=== PATIENT | male | born 1970 | race Caucasian/White ===

== ENCOUNTER → 2017-01-10 | Outpatient (CLI) | payer OTHER ==
[~2017-01-10] MED LIST: /ESCI20TA; EFFE37.527; PREVACID30 PO; TESSALO100 PO; TRAZ150T; VICODIN PO
--- NOTE | 2017-01-18 00:14 | ECWPNPC ---
PATIENT NAME: DANO TORRES : 1970 GENDER: MALE VISIT DATE: 01/10/2017 DISCHARGE DATE: 01/10/17 1553 VISIT LOCKED DATE TIME: PHYSICIAN: TO SAM RESOURCE: TO SAM REASON FOR APPOINTMENT 1. BACK PAIN HISTORY OF PRESENT ILLNESS FALL RISK SCREENING: SCREENING :NO FALLS IN THE PAST YEAR 46 YEAR OLD MALE PATIENT WITH HISTORY OF CHRONIC BACK PAIN. PATIENT DESCRIBES THE PAIN STABBING, TENDER, AND THROBBING WITH A PAIN SCORE OF 8/10. MR. 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 PATIENT HAS NOT DONE PHYSICAL THERAPY BECAUSE HE WOULD PREFER TO WORK TO SUPPORT HIS FAMILY. PATIENT IS CURRENTLY USING GABAPENTIN AND TIZANIDINE TO AID IN PAIN RELIEF. MR. TORRES STATES THAT WALKING AND ANY TYPE OF LIFTING OR BENDING INCREASES THE PAIN IN HIS LOWER BACK. PATIENT DENIES UNEXPLAINABLE WEIGHT LOSS, FEVER, CHILLS, NEW CHANGES ON HIS URINARY OR BOWEL CONTROL. PAIN SCREENING: PATIENT HAS A COMPLAINT OF ACUTE OR CHRONIC PAIN YES CURRENT MEDICATIONS TAKING LISINOPRIL 20 MG TABLET ORALLY DAILY TAKING CLARITIN 10 MG TABLET 1 TABLET ORALLY ONCE A DAY TAKING VICODIN 5-300 MG TABLET 1 TABLET NEEDED ORALLY EVERY 6 HRS TAKING REQUIP 3 MG TABLET ORALLY BID TAKING PROZAC 20 MG CAPSULE 1 CAP ORALLY BEFORE BEDTIME TAKING IRON 325 (65 FE) MG TABLET 1 TABLET ORALLY THREE TIMES DAILY TAKING GABAPENTIN 800 MG TABLET 1 TABLET ORALLY THREE TIMES A DAY TAKING TIZANIDINE HCL 4 MG CAPSULE 1 CAPSULE NEEDED ORALLY THREE TIMES A DAY MEDICATION LIST REVIEWED AND RECONCILED WITH THE PATIENT PAST MEDICAL HISTORY HYPERTENSION HIGH CHOLESTEROL DEPRESSION NECK PAIN BACK PAIN ALLERGIES N.K.D.A. SURGICAL HISTORY LEFT ANKLE RIGHT AND LEFT KNEE BACK GASTRIC BYPASS FAMILY HISTORY FATHER: 78 YRS, DIAGNOSED WITH HEART DISEASE MOTHER: ALIVE 71 YRS, DIAGNOSED WITH HEART DISEASE, OTHER SIBLINGS: ALIVE, DIAGNOSED WITH OTHER MOTHER--KIDNEY , RHUMATOID ARTHRITISSISTER--MS. SOCIAL HISTORY GENERAL: TOBACCO USE ARE YOU A:FORMER SMOKER VAPORYES CURRENTLY ALCOHOL SCREENING DID YOU HAVE A DRINK CONTAINING ALCOHOL IN THE PAST YEAR?YES HOW OFTEN DID YOU HAVE A DRINK CONTAINING ALCOHOL IN THE PAST YEAR?MONTHLY OR LESS (1 POINT) HOW MANY DRINKS DID YOU HAVE ON A TYPICAL DAY WHEN YOU WERE DRINKING IN THE PAST YEAR?1 OR 2 (0 POINTS) HOW OFTEN DID YOU HAVE SIX OR MORE DRINKS ON ONE OCCASION IN THE PAST YEAR?NEVER (0 POINTS) POINTS1 INTERPRETATIONNEGATIVE RECREATIONAL DRUG USE DRUG USE?NO CAFFEINE CAFFEINE USE?YES HOW OFTEN AND HOW MUCH? 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 DIET: REGULAR. EXERCISE: PLAYS BASKET BALL DAILY DURING THE SUMMER PLAYS SOFTBALL 2 X WEEK DURING THE SUMMER GOLFS DURING THE SUMMER. MARITAL STATUS: . OTHERS AT HOME: SPOUSE, 5 ADOPTED CHILDREN. PETS: 1 DOG. ISLAM: NO DRUZE BELIEFS THAT WOULD IMPACT HEALTH CARE. LANGUAGE: CROATIAN. EDUCATION: GRADUATED HIGH SCHOOL PLAN OF CARE FOR THE PAIN CLINIC REVIEWED WITH PATIENT AND HE VERBALIZED UNDERSTANDING. LEARNING BARRIERS / SPECIAL NEEDS BARRIERS TO LEARNING?YES COMMENTS DIFFICULTY READING HEARING IMPAIRED?NO VISION IMPAIRED?YES :CORRECTIVE LENSES COGNITIVELY IMPAIRED?YES :LEARNING DISABILITY HAS DIFFICULTY READING READINESS TO LEARN?YES LEARNING PREFERENCES?YES :DEMONSTRATION/VERBAL INSTRUCTION PAIN CLINIC PFS, CLERGY, PUBLIC HEALTH REFERRALS PFS REFERRAL NEEDED?NO CLERGY REFERRAL NEEDED?NO PUBLIC HEALTH REFERRAL NEEDED?NO ADVANCED DIRECTIVES HEALTH CARE PROXY?YES NAME OF HCP -[facility] CONTACT # FOR HCP [phone] IF YES, DO YOU HAVE A COPY WITH YOU?NO SHOULD HAVE ON FILE FOR THE HOSPITAL DO YOU HAVE A DNR?NO POWER OF FILTER TANK TENDER HELPER?NO DOMESTIC VIOLENCE: NONE. HOSPITALIZATION/MAJOR DIAGNOSTIC PROCEDURE SURGURIES REVIEW OF SYSTEMS CONSTITUTIONAL: ANY CHANGE IN YOUR MEDICAL CONDITION? NO . CHILLS NO . FEVER NO . INFECTION: DO YOU HAVE NEW INFECTIONS? NO . DO YOU HAVE HISTORY OF MRSA? NO . MUSCULOSKELETAL: ANY NEW PATTERNS OF PAIN OR NUMBNESS? NO . SYTEMIC LUPUS NO . GASTROENTEROLOGY: ANY NEW CHANGE IN BOWEL CONTROL? NO . BARRETTS ESOPHAGUS NO . CIRRHOSIS NO . HEPATITIS NO . LIVER FAILURE NO . ACID REFLUX YES, PRIOR TO GASTRIC BYPASS--NONE SINCE . UNEXPLAINED WEIGHT LOSS NO . GENITOURINARY: ANY NEW CHANGE IN BLADDER CONTROL? NO . IS THERE A CHANCE YOU COULD BE ? NO . HEMATOLOGY/LYMPH: DO YOU TAKE ANY BLOOD THINNERS? (FOR EXAMPLE- COUMADIN, PLAVIX, AGGRENOX, PLATEL, PRADAXA, OR XARELTO) NO . WHEN WAS YOUR LAST DOSE? DATE: TIME: . LOW PLATELET COUNT NO . SICKLE CELL DISEASE NO . VON WILLIEBRANDS NO . FACTOR V LEIDEN NO . THALLASEMIA NO . ANEMIA NO . EASY BRUISING NO . NEUROLOGY: HAVE YOU FALLEN IN THE PAST 6 MONTHS? NO . ANY NEW EXTREMITY NUMBNESS OR WEAKNESS? NO . HEAD INJURY NO . DEMENTIA NO . CEREBRAL PALSY NO . MULTIPLE SCLEROSIS NO . DIZZINESS NO . HEADACHE NO . STROKES NO . VERTIGO NO . CARDIOLOGY: DO YOU HAVE A PACEMAKER OR DEFIBRILLATOR? NO . ANGINA NO . HEART ATTACK NO . HEART SURGERY NO . CONGESTIVE HEART FAILURE/FLUID OVERLOAD NO . CHEST PAIN NO . HIGH BLOOD PRESSURE NO . IRREGULAR HEART BEAT NO . RESPIRATORY: HAVE YOU BEEN SICK IN THE PAST WEEK? NO . FEVER NO . FLU LIKE SYMPTOMS? NO . CPAP NO . BYPAP NO . ASTHMA NO . EMPHYSEMA NO . CHRONIC LUNG DISEASES NO . SHORTNESS OF BREATH ON EXERTION NO . COUGH NO . SNORING YES . INTEGUMENTARY: DO YOU HAVE ANY RASHES OR OPEN SORES? NO . ALLERGIC/IMMUNO: ARE YOU ALLERGIC TO SHELLFISH OR IV DYE? NO . ANY NEW ALLERGIES? NO . PSYCHIATRIC: DO YOU HAVE THOUGHTS OF HURTING YOURSELF OR SOMEONE ELSE? NO . ARE YOU ABUSED, NEGLECTED, OR IN AN UNSAFE ENVIRONMENT? NO . ENDOCRINOLOGY: ARE YOU DIABETIC? NO . THYROID DISORDER NO . OTHER: DO YOU NEED ANY PRESCRIPTIONS? NO . IF YES, PLEASE LIST: ____ . ANY NEW PROBLEMS WITH YOUR MEDICATIONS? NO . WHEN DID YOU LAST EAT? ____ . WHEN DID YOU LAST DRINK? ____ . WHAT DID YOU LAST DRINK? ____ . NAME OF PERSON DRIVING YOU HOME? ____ . DO YOU HAVE ANY OTHER QUESTIONS OR CONCERNS WOULD LIKE PAIN RELIEF . REVIEWED BY: PROVIDER: TO SAM MD . VITAL SIGNS WT 233.0 LBS, HT 71", BMI 32.49 INDEX, BP 125/77 MM HG, HR 90 /MIN, RR 16 /MIN, TEMP 97.7 F, OXYGEN SAT % 99%, NA INITIALS SC 14:22, REVIEWED BY: AR. EXAMINATION : PATIENT IS ALERT O X 3 AND COOPERATIVE. TENDERNESS IN THE LOWER BACK AND PARASPINAL MUSCLE GROUP. BANDS OF TISSUE, RESTRICTION OF MOVEMENT, AND PRENSENCE OF TRIGGER POINTS IN THE LOWER BACK AREA, ESPECIALLY THE LEFT SIDE. PENDING LUMBAR MRI. ASSESSMENTS MYALGIA - M79.1 (PRIMARY) TREATMENT MYALGIA NOTES: WE DISCUSSED SEVERAL ISSUES WITH MR. TORRES'S PAIN MANAGEMENT CASE. AT THIS TIME THE PATIENT WILL CONTINUE WITH THE SAME MEDICATION REGIME. PATIENT IS AWARE THAT IF HE WOULD LIKE ME TO START PRESCRIBING THAT I WOULD NEED TO SPEAK WITH EDUARDO MOSELEY DIRECTLY ABOUT MEDICATIONS. DUE TO THE SPASTICITY IN THE LOWER BACK I BELIEVE THE PATIENT WOULD BENENFITS FROM TRIGGER POINT INJECTIONS. WE DISCUSSED THE RISKS, BENEFITS, AND ALTNERATIVES OF THE INJECTION AND THE PATIENT WOULD LIKE TO PROCEED AT THIS TIME. ONCE I HAVE VIEWED THE PATIENT'S MRI WE WILL DISCUSS FURTHER INTERVENTIONS IF THE PATIENT DOES NOT RECEIVE ADEQUATE RELIEF FROM THE TRIGGER POINT INJECTIONS. INSTRUCTIONS WERE GIVEN, QUESTIONS WERE ANSWERED, PATIENT REPORTS UNDERSTANDING AND AGREES WITH THE PLAN. I, ANKUSH HOWELL, DOCUMENTED THE ABOVE INFORMATION ACTING A SCRIBE FOR DR. SAM. I HAVE REVIEWED THE ABOVE DOCUMENT, WRITTEN BY ANKUSH SANDOVAL AND I VERIFY THAT IT IS ACCURATE. DEAR DR. CARRANZA:THANK YOU FOR YOUR KIND REFERRAL OF MR. TORRES. YOU WANT TO DISCUSS HER CASE WITH ME PLEASE CALL ME AT THE PAIN CENTER AT [phone]. SINCERELY,TO SAM, [facility]. PRE[facility] MEDICINE PAIN CLINIC TEACHING: PROCEDURE TEACHING PATIENT DECLINED INFORMATION ON TPI STATING HE HAS HAD THEM IN THE PAST AND IS FAMILIAR WITH THEM. PROCEDURED REVIEWED WITH PATIENT ALONG WITH PRE-PROCEDURE INSTRUTIONS AND HE VERBALIZED UNDERSTANDING.. PROCEDURE CODES FA211 ESTABILISHED PATIENT [facility] CHARGE G8427 DOC MEDS VERIFIED W/PT OR RE G8730 PAIN ASSESS POS TOOL F/U PLAN DOC DISPOSITION & COMMUNICATION FOLLOW UP TPI AFTER APPROVAL ELECTRONICALLY SIGNED BY TO SAM MD ON 01/16/2017 AT 11:29 AM EDT DISCLAIMER : THIS IS A VISIT SUMMARY EXTRACTED FROM THE [employer] CHART. IT IS NOT A COPY OF THE [employer] PROGRESS NOTE. BEKAH
== END ==
LOC: M PAIN 13:20
PROVIDERS: ATTEND Anesthesiology
DX: Z09 Encounter for follow-up examination after completed treatment for conditions other than malignant neoplasm (principal); M79.1 Myalgia; M54.5 Low back pain; I10 Essential (primary) hypertension; E78.00 Pure hypercholesterolemia, unspecified; F32.9 Major depressive disorder, single episode, unspecified; F17.200 Nicotine dependence, unspecified, uncomplicated; K21.9 Gastro-esophageal reflux disease without esophagitis; Z79.891 Long term (current) use of opiate analgesic; Z79.899 Other long term (current) drug therapy

== ENCOUNTER → 2017-01-10 | Outpatient (CLI) | payer OTHER | LOC: M PAIN 11:20 | PROVIDERS: ATTEND Anesthesiology | DX: G89.29 Other chronic pain (principal); M47.812 Spondylosis without myelopathy or radiculopathy, cervical region; M79.1 Myalgia; I10 Essential (primary) hypertension; E78.00 Pure hypercholesterolemia, unspecified; F32.9 Major depressive disorder, single episode, unspecified; K21.9 Gastro-esophageal reflux disease without esophagitis; F17.200 Nicotine dependence, unspecified, uncomplicated; Z79.891 Long term (current) use of opiate analgesic; Z79.899 Other long term (current) drug therapy ==

== ENCOUNTER → 2017-01-17 | Outpatient (CLI) | payer OTHER ==
[~2017-01-17] MED LIST changes: +BUPIVACAINE HCL 0.25% 10 ML VIAL As Ordered ONE; +BUPIVACAINE HCL 0.25% 30 ML VIAL As Ordered ONE; +TRIAMCINOLONE ACETONIDE SUSP 40 MG/ML VIAL (J3301) As Ordered ONE; +diazePAM 5 MG TAB As Ordered ONE; +oxyCODONE 5MG TAB As Ordered ONE
--- NOTE | 2017-01-22 23:13 | ECWPNPC ---
PATIENT NAME: DANO TORRES : 1970 GENDER: MALE VISIT DATE: 01/17/2017 DISCHARGE DATE: 01/17/17 0000 VISIT LOCKED DATE TIME: PHYSICIAN: TO SAM RESOURCE: TO SAM REASON FOR APPOINTMENT 1. LOW BACK [facility] HISTORY OF PRESENT ILLNESS HISTORY OF PRESENT ILLNESS: PAIN THE PATIENT DESCRIBES THE PAIN... FALL RISK SCREENING: SCREENING :NO FALLS IN THE PAST YEAR CURRENT MEDICATIONS TAKING LISINOPRIL 20 MG TABLET ORALLY DAILY, NOTES: 01-16-172199 TAKING CLARITIN 10 MG TABLET 1 TABLET ORALLY ONCE A DAY, NOTES: 12-19-162199 TAKING VICODIN 5-300 MG TABLET 1 TABLET NEEDED ORALLY EVERY 6 HRS, NOTES: 01-16-172199 TAKING REQUIP 3 MG TABLET ORALLY BID, NOTES: 01-16-172199 TAKING PROZAC 20 MG CAPSULE 1 CAP ORALLY BEFORE BEDTIME, NOTES: 01-16-172199 TAKING IRON 325 (65 FE) MG TABLET 1 TABLET ORALLY THREE TIMES DAILY, NOTES: 01-16-172199 TAKING GABAPENTIN 800 MG TABLET 1 TABLET ORALLY THREE TIMES A DAY, NOTES: 01-16-172199 TAKING TIZANIDINE HCL 4 MG CAPSULE 1 CAPSULE NEEDED ORALLY THREE TIMES A DAY, NOTES: 01-16-172199 MEDICATION LIST REVIEWED AND RECONCILED WITH THE PATIENT PAST MEDICAL HISTORY HYPERTENSION HIGH CHOLESTEROL DEPRESSION NECK PAIN BACK PAIN ALLERGIES N.K.D.A. SOCIAL HISTORY GENERAL: TOBACCO USE ARE YOU A:NONSMOKER LEARNING BARRIERS / SPECIAL NEEDS ORIENTED TO PLAN OF CARE: PATIENT, PAIN MANAGEMENT PATIENT, ORIENTED TO PLAN OF CARE: PATIENT, PAIN MANAGEMENT PATIENT. NEW PATIENT PAIN DIARY TODAY'S VISITNOTES FROM 0-10, WHAT LEVEL IS YOUR PAIN TODAY?0 PAIN CLINIC PFS, CLERGY, PUBLIC HEALTH REFERRALS PFS REFERRAL NEEDED?NO CLERGY REFERRAL NEEDED?NO PUBLIC HEALTH REFERRAL NEEDED?NO WAS THE PROVIDER NOTIFIED OF ANY PERTINENT INFO?NO PFS REFERRAL NEEDED?NO CLERGY REFERRAL NEEDED?NO PUBLIC HEALTH REFERRAL NEEDED?NO WAS THE PROVIDER NOTIFIED OF ANY PERTINENT INFO?NO REVIEW OF SYSTEMS CONSTITUTIONAL: ANY CHANGE IN YOUR MEDICAL CONDITION? NO . CHILLS NO . FEVER NO . INFECTION: DO YOU HAVE NEW INFECTIONS? NO . DO YOU HAVE HISTORY OF MRSA? NO . MUSCULOSKELETAL: ANY NEW PATTERNS OF PAIN OR NUMBNESS? NO . GASTROENTEROLOGY: ANY NEW CHANGE IN BOWEL CONTROL? NO . GENITOURINARY: ANY NEW CHANGE IN BLADDER CONTROL? NO . IS THERE A CHANCE YOU COULD BE ? NO . HEMATOLOGY/LYMPH: DO YOU TAKE ANY BLOOD THINNERS? (FOR EXAMPLE- COUMADIN, PLAVIX, AGGRENOX, PLATEL, PRADAXA, OR XARELTO) NO . WHEN WAS YOUR LAST DOSE? DATE: TIME: . NEUROLOGY: HAVE YOU FALLEN IN THE PAST 6 MONTHS? NO . ANY NEW EXTREMITY NUMBNESS OR WEAKNESS? NO . CARDIOLOGY: DO YOU HAVE A PACEMAKER OR DEFIBRILLATOR? NO . RESPIRATORY: HAVE YOU BEEN SICK IN THE PAST WEEK? NO . FEVER NO . FLU LIKE SYMPTOMS? NO . COUGH NO . INTEGUMENTARY: DO YOU HAVE ANY RASHES OR OPEN SORES? NO . ALLERGIC/IMMUNO: ARE YOU ALLERGIC TO SHELLFISH OR IV DYE? NO . ANY NEW ALLERGIES? NO . PSYCHIATRIC: DO YOU HAVE THOUGHTS OF HURTING YOURSELF OR SOMEONE ELSE? NO . ARE YOU ABUSED, NEGLECTED, OR IN AN UNSAFE ENVIRONMENT? NO . ENDOCRINOLOGY: ARE YOU DIABETIC? NO . OTHER: DO YOU NEED ANY PRESCRIPTIONS? NO . IF YES, PLEASE LIST: ____ . ANY NEW PROBLEMS WITH YOUR MEDICATIONS? NO . WHEN DID YOU LAST EAT? ____LAST NIGHT 2200 . WHEN DID YOU LAST DRINK? ____0600 . WHAT DID YOU LAST DRINK? ____BLACK COFFEE . NAME OF PERSON DRIVING YOU HOME? ____ . DO YOU HAVE ANY OTHER QUESTIONS OR CONCERNS NO . REVIEWED BY: PROVIDER: . VITAL SIGNS WT 230.0 LBS, HT 71", BMI 32.07 INDEX, BP 145/91 MM HG, HR 56 /MIN, RR 16 /MIN, TEMP 96.0 F, OXYGEN SAT % 97, NA INITIALS TL 0950, REVIEWED BY: KG. ASSESSMENTS MYALGIA - M79.1 (PRIMARY) PROCEDURES PN TRIGGER POINT INJECTION WITH STEROIDS PRE PROCEDURE DIAGNOSIS 1. MYALGIA 2. PAIN AT BILATERAL LOWER BACK AREA POST PROCEDURE DIAGNOSIS 1. MYALGIA 2. PAIN AT BILATERAL LOWER BACK AREA PROCEDURE TRIGGER POINT INJECTION AT BILATERAL LOWER BACK AREA SURGEON DR. TO SAM DIRECTOR OF DIAGNOSTIC IMAGING NONE ANESTHESIA LOCAL PRE PROCEDURE NOTE THE PATIENT HAS A HISTORY OF CHRONIC PAIN AT THE RIGHT AND LEFT LOWER BACK AREA. I EVALUATE THE PATIENT AND REVIEWED THE CHART. THERE IS EVIDENCE OF BANDS OF TISSUE WITH RESTRICTION OF MOVEMENT AND PRESENCE OF TRIGGER POINT AT THE AFFECTED AREA. I WENT OVER THE RISKS, ALTERNATIVES, AND BENEFITS ASSOCIATED WITH THE PROCEDURE. THE PATIENT WOULD LIKE TO PROCEED AND GIVE CONSENT TO PERFORMED THE PROCEDURE. THE PATIENT DENIES UNEXPLAINABLE WEIGHT LOSS, FEVER, CHILLS, OR NEW CHANGES IN URINARY OR BOWEL CONTROL DESCRIPTION OF PROCEDURE THE PATIENT WAS BROUGHT TO THE PROCEDURE ROOM AND PLACED IN THE SITTING POSITION. THE AREA WAS CLEANED WITH ALCOHOL. THE PROCEDURE WAS DONE USING ASEPTIC STERILE TECHNIQUE. I CHECKED LATERALITY AND THE LEVEL WHERE THE PROCEDURE WAS GOING TO BE PERFORMED WITH THE PATIENT AND THE SUPPORTING STAFF AT THE MOMENT OF THE TIME OUT IN THE PROCEDURE ROOM. USING A 25-GAUGE NEEDLE, TRIGGER POINTS WERE INJECTED AT THE RIGHT AND LEFT LOWER BACK AREA WITH A TOTAL OF 40 ML OF BUPIVACAINE 0.25% AND KENALOG 40 MG. THERE WAS NO EVIDENCE OF BLOOD, PARESTHESIA OR CEREBROSPINAL FLUID DURING THE PROCEDURE. THE PATIENT WAS SENT TO THE RECOVERY ROOM. THE PATIENT WAS MOVING THE EXTREMITIES AND DOING WELL. THERE WAS NO COMPLICATION DURING THE PROCEDURE POST PROCEDURE NOTE THE PATIENT WILL BE SEEN IN A FOLLOW UP IN THE NEXT FEW WEEKS. INSTRUCTIONS WERE GIVEN, QUESTIONS WERE ANSWERED, AND THE PATIENT EXPRESSED UNDERSTANDING AND AGREES WITH THE PLAN. I, ANKUSH HOWELL, DOCUMENTED THE ABOVE INFORMATION ACTING A SCRIBE FOR DR. SAM. I HAVE REVIEWED THE ABOVE DOCUMENT, WRITTEN BY ANKUSH SANDOVAL AND I VERIFY THAT IT IS ACCURATE PROCEDURE CODES 42709 INJ TRIGGER POINT 11/08 [facility] [place] DISPOSITION & COMMUNICATION FOLLOW UP 3 WEEKS ELECTRONICALLY SIGNED BY TO SAM MD ON 01/22/2017 AT 09:38 PM EDT DISCLAIMER : THIS IS A VISIT SUMMARY EXTRACTED FROM THE [employer] CHART. IT IS NOT A COPY OF THE [employer] PROGRESS NOTE. BEKAH
== END ==
LOC: M PAIN 10:00
PROVIDERS: ATTEND Anesthesiology
DX: G89.29 Other chronic pain (principal); M79.1 Myalgia; M54.5 Low back pain; I10 Essential (primary) hypertension; E78.00 Pure hypercholesterolemia, unspecified; F32.9 Major depressive disorder, single episode, unspecified; Z79.899 Other long term (current) drug therapy
CPT/HCPCS: 20552; J3301

== ENCOUNTER → 2017-02-10 | Outpatient (CLI) | payer OTHER ==
[~2017-02-10] MED LIST changes: -BUPIVACAINE HCL 0.25% 10 ML VIAL As Ordered ONE; -BUPIVACAINE HCL 0.25% 30 ML VIAL As Ordered ONE; -TRIAMCINOLONE ACETONIDE SUSP 40 MG/ML VIAL (J3301) As Ordered ONE; -diazePAM 5 MG TAB As Ordered ONE; -oxyCODONE 5MG TAB As Ordered ONE
--- NOTE | 2017-02-22 02:39 | ECWPNPC ---
PATIENT NAME: DANO TORRES : 1970 GENDER: MALE VISIT DATE: 02/10/2017 DISCHARGE DATE: 02/10/17 1434 VISIT LOCKED DATE TIME: PHYSICIAN: LILI CRUZ RESOURCE: LILI CRUZ REASON FOR APPOINTMENT 1. [facility] LOW BACK PAIN HISTORY OF PRESENT ILLNESS HISTORY OF PRESENT ILLNESS: HERE FOR POST PROC. F/U.HAD TPI LOW BACK ON 01-17-17 WITHOUT IMPROVEMENT.RATING PAIN VAS 8/10.HISTORY OF LOW BACK FUSION SURGERY LAST YEAR WITH DR. SOLORZANO.NO IMPROVEMENT AND CAUSED INCREASE IN LOW BACK PAIN AND NEW ONSET OF LEFT LEG PARATHESIAS.RATING PAIN VAS 8/10.PAIN AGGREVATED BY PROLONGED SITTING OR STANDING.REPORTS POOR SLEEP AT NIGHT SECONDARY TO PAIN.DISCUSSED MEDICATION AND TREATMENT OPTIONS. PAIN THE PATIENT DESCRIBES THE PAIN... FALL RISK SCREENING: SCREENING :NO FALLS IN THE PAST YEAR CURRENT MEDICATIONS TAKING LISINOPRIL 20 MG TABLET ORALLY DAILY TAKING CLARITIN 10 MG TABLET 1 TABLET ORALLY ONCE A DAY TAKING REQUIP 3 MG TABLET ORALLY BID TAKING PROZAC 20 MG CAPSULE 1 CAP ORALLY BEFORE BEDTIME TAKING IRON 325 (65 FE) MG TABLET 1 TABLET ORALLY THREE TIMES DAILY TAKING GABAPENTIN 800 MG TABLET 1 TABLET ORALLY THREE TIMES A DAY TAKING TIZANIDINE HCL 4 MG CAPSULE 1 CAPSULE NEEDED ORALLY THREE TIMES A DAY TAKING HYDROCODONE-ACETAMINOPHEN 7.5-325 MG TABLET 1 TABLET NEEDED ORALLY EVERY 6 HRS DISCONTINUED VICODIN 5-300 MG TABLET 1 TABLET NEEDED ORALLY EVERY 6 HRS MEDICATION LIST REVIEWED AND RECONCILED WITH THE PATIENT PAST MEDICAL HISTORY HYPERTENSION HIGH CHOLESTEROL DEPRESSION NECK PAIN BACK PAIN ALLERGIES N.K.D.A. SOCIAL HISTORY GENERAL: PAIN CLINIC PFS, CLERGY, PUBLIC HEALTH REFERRALS CLERGY REFERRAL NEEDED?NO WAS THE PROVIDER NOTIFIED OF ANY PERTINENT INFO?NO PFS REFERRAL NEEDED?NO PUBLIC HEALTH REFERRAL NEEDED?NO PATIENT: ____. REVIEW OF SYSTEMS CONSTITUTIONAL: ANY CHANGE IN YOUR MEDICAL CONDITION? NO . RECENT ILLNESS DENIES . CHILLS NO . FEVER NO . WEIGHT LOSS DENIES . INFECTION: DO YOU HAVE NEW INFECTIONS? NO . DO YOU HAVE HISTORY OF MRSA? NO . MUSCULOSKELETAL: ANY NEW PATTERNS OF PAIN OR NUMBNESS? NO . GASTROENTEROLOGY: ANY NEW CHANGE IN BOWEL CONTROL? NO . GENITOURINARY: ANY NEW CHANGE IN BLADDER CONTROL? NO . IS THERE A CHANCE YOU COULD BE ? NO . HEMATOLOGY/LYMPH: DO YOU TAKE ANY BLOOD THINNERS? (FOR EXAMPLE- COUMADIN, PLAVIX, AGGRENOX, PLATEL, PRADAXA, OR XARELTO) NO . WHEN WAS YOUR LAST DOSE? DATE: TIME: . NEUROLOGY: HAVE YOU FALLEN IN THE PAST 6 MONTHS? NO . ANY NEW EXTREMITY NUMBNESS OR WEAKNESS? NO . CARDIOLOGY: DO YOU HAVE A PACEMAKER OR DEFIBRILLATOR? NO . CHEST PAIN DENIES . SHORTNESS OF BREATH DENIES . RESPIRATORY: HAVE YOU BEEN SICK IN THE PAST WEEK? NO . FEVER NO . FLU LIKE SYMPTOMS? NO . COUGH NO, DENIES . SHORTNESS OF BREATH DENIES . INTEGUMENTARY: DO YOU HAVE ANY RASHES OR OPEN SORES? NO . ALLERGIC/IMMUNO: ARE YOU ALLERGIC TO SHELLFISH OR IV DYE? NO . ANY NEW ALLERGIES? NO . PSYCHIATRIC: DO YOU HAVE THOUGHTS OF HURTING YOURSELF OR SOMEONE ELSE? NO . ARE YOU ABUSED, NEGLECTED, OR IN AN UNSAFE ENVIRONMENT? NO . ENDOCRINOLOGY: ARE YOU DIABETIC? NO . OTHER: DO YOU NEED ANY PRESCRIPTIONS? NO . IF YES, PLEASE LIST: ____ . ANY NEW PROBLEMS WITH YOUR MEDICATIONS? NO . WHEN DID YOU LAST EAT? ____ . WHEN DID YOU LAST DRINK? ____ . WHAT DID YOU LAST DRINK? ____ . NAME OF PERSON DRIVING YOU HOME? ____ . DO YOU HAVE ANY OTHER QUESTIONS OR CONCERNS ONLY HAD A DAYS RELIEF FROM THE TPI'S BILATERA LOW BACK&NBSP;. REVIEWED BY: PROVIDER: LILI MCGARRY . VITAL SIGNS WT 239.6 LBS, HT 71", BMI 33.41 INDEX, BP 134/88 MM HG, HR 78 /MIN, RR 16 /MIN, TEMP 99.1 F, OXYGEN SAT % 95, NA INITIALS AW 135, REVIEWED BY: AD. EXAMINATION GENERAL EXAMINATION: LUNGS:LUNG SOUNDS ARE CLEAR. HEART:HEART RATE REGULAR. MUSCULOSKELETAL:*, MUSCLE STRENGTH TESTING 5/5 RLE/ 3/5 LLE. WELL HEALED SURGICAL SCAR NOTED.REPORTS NO FEELING TO LIGHT TOUCH LEFT LEG .REPORTS NORMAL SENSATION LIGHT TOUCH LEFT LOWER EXT.SPECIFIC POINT TENDERNESS OVER LEFT SIJ. DIAGNOSTIC:MRI L/S [id number]-REVIEWED. ASSESSMENTS FAILED BACK SYNDROME - M96.1 (PRIMARY) SACROILIAC JOINT PAIN - M53.3 TREATMENT FAILED BACK SYNDROME START AMITRIPTYLINE HCL TABLET, 25 MG, 1 TABLET, ORALLY, ONCE A DAY, 30 DAY(S), 30, REFILLS 2 INJECTION ANESTHETIC SACROILIAC JOINTLILI CRUZ 02/10/2017 2:25:27 PM > LEFT SIJ PREVENTIVE MEDICINE PAIN CLINIC TEACHING: PROCEDURE TEACHING PRINTED INFORMATION ON SIJ INJECTION GIVEN TO AND EXPLAINED TO PATIENT ALONG WITH PRE-PROCEDURE INSTRUCTIONS.PATEINT VERBALIZED UNDERSTANDING ON BOTH.. MEDITATION PRINTED INFORMATION ON AMITRIPTYLINE GIVEN TO AND EXPLAINED TO PATIENT AND HE VERBALIZED UNDERSTANDING.. PROCEDURE CODES FA211 ESTABILISHED PATIENT [facility] CHARGE DISPOSITION & COMMUNICATION FOLLOW UP 2WK POST (REASON: LEFT SIJ) ELECTRONICALLY SIGNED BY ZEFERINO SIMMONS ON 02/21/2017 AT 03:43 PM EDT DISCLAIMER : THIS IS A VISIT SUMMARY EXTRACTED FROM THE [employer] CHART. IT IS NOT A COPY OF THE [employer] PROGRESS NOTE. BEKAH
== END ==
LOC: M PAIN 13:20
PROVIDERS: ATTEND Nurse Practitioner Family
DX: M96.1 Postlaminectomy syndrome, not elsewhere classified (principal); M53.3 Sacrococcygeal disorders, not elsewhere classified; M54.5 Low back pain; G89.29 Other chronic pain; Z79.899 Other long term (current) drug therapy; Z79.891 Long term (current) use of opiate analgesic; I10 Essential (primary) hypertension; E78.00 Pure hypercholesterolemia, unspecified; F32.9 Major depressive disorder, single episode, unspecified

== ENCOUNTER → 2017-02-10 | Outpatient (CLI) | payer OTHER ==
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
== END ==
LOC: M PAIN 14:20
PROVIDERS: ATTEND Anesthesiology
DX: M79.1 Myalgia (principal); M54.5 Low back pain; G89.29 Other chronic pain; Z79.891 Long term (current) use of opiate analgesic; Z79.899 Other long term (current) drug therapy; I10 Essential (primary) hypertension; E78.00 Pure hypercholesterolemia, unspecified; F32.9 Major depressive disorder, single episode, unspecified; M54.2 Cervicalgia

== ENCOUNTER → 2017-03-15 | Outpatient (CLI) | payer OTHER ==
--- NOTE | 2017-03-31 00:58 | ECWPNPC ---
PATIENT NAME: DANO TORRES : 1970 GENDER: MALE VISIT DATE: 03/15/2017 DISCHARGE DATE: 03/15/17 1605 VISIT LOCKED DATE TIME: PHYSICIAN: LILI CRUZ RESOURCE: LILI CRUZ HISTORY OF PRESENT ILLNESS HISTORY OF PRESENT ILLNESS: HERE FOR F/U AND MANAGEMENT OF LOW BACK PAIN.TRIALED AMITRIPTYLINE 25MG AT BEDTIME BUT NOTICED BILAT HAND AND ARM SWELLING.HE STOPPED MEDCATION AND SWELLING RESOLVED.CONTINUES TO COMPLAIN OF POOR SLEEP DUE TO LOW BACK PAIN.RATING PAIN VAS 8/10. PAIN THE PATIENT DESCRIBES THE PAIN... FALL RISK SCREENING: SCREENING :NO FALLS IN THE PAST YEAR CURRENT MEDICATIONS TAKING HYDROCODONE-ACETAMINOPHEN 7.5-325 MG TABLET 1 TABLET NEEDED ORALLY EVERY 6 HRS TAKING AMITRIPTYLINE HCL 25 MG TABLET 1 TABLET ORALLY ONCE A DAY TAKING LISINOPRIL 20 MG TABLET ORALLY DAILY, NOTES: 01-16-172199 TAKING CLARITIN 10 MG TABLET 1 TABLET ORALLY ONCE A DAY, NOTES: 12-19-162199 TAKING REQUIP 3 MG TABLET ORALLY BID, NOTES: 01-16-172199 TAKING PROZAC 20 MG CAPSULE 1 CAP ORALLY BEFORE BEDTIME, NOTES: 01-16-172199 TAKING IRON 325 (65 FE) MG TABLET 1 TABLET ORALLY THREE TIMES DAILY, NOTES: 01-16-172199 TAKING GABAPENTIN 800 MG TABLET 1 TABLET ORALLY THREE TIMES A DAY, NOTES: 01-16-172199 TAKING TIZANIDINE HCL 4 MG CAPSULE 1 CAPSULE NEEDED ORALLY THREE TIMES A DAY, NOTES: 01-16-172199 TAKING HYDROCODONE-ACETAMINOPHEN 7.5-325 MG TABLET 1 TABLET NEEDED ORALLY EVERY 6 HRS TAKING DEPAKOTE 500 MG TABLET DELAYED RELEASE ORALLY MEDICATION LIST REVIEWED AND RECONCILED WITH THE PATIENT PAST MEDICAL HISTORY HYPERTENSION HIGH CHOLESTEROL DEPRESSION NECK PAIN BACK PAIN ARTHRITIS ALLERGIES ENVIRONMENTAL: NASAL CONGESTION: ALLERGY AMITRIPTYLINE HCL: ARM SWELLING: ALLERGY SURGICAL HISTORY LEFT ANKLE RIGHT AND LEFT KNEE BACK 04/2016 GASTRIC BYPASS 2008 HOSPITALIZATION/MAJOR DIAGNOSTIC PROCEDURE SURGERIES REVIEW OF SYSTEMS CONSTITUTIONAL: ANY CHANGE IN YOUR MEDICAL CONDITION? NO . CHILLS NO . FEVER NO . INFECTION: DO YOU HAVE NEW INFECTIONS? NO . DO YOU HAVE HISTORY OF MRSA? NO . MUSCULOSKELETAL: ANY NEW PATTERNS OF PAIN OR NUMBNESS? NO . GASTROENTEROLOGY: ANY NEW CHANGE IN BOWEL CONTROL? NO . GENITOURINARY: ANY NEW CHANGE IN BLADDER CONTROL? NO . IS THERE A CHANCE YOU COULD BE ? NO . HEMATOLOGY/LYMPH: DO YOU TAKE ANY BLOOD THINNERS? (FOR EXAMPLE- COUMADIN, PLAVIX, AGGRENOX, PLATEL, PRADAXA, OR XARELTO) NO . WHEN WAS YOUR LAST DOSE? DATE: TIME: . NEUROLOGY: HAVE YOU FALLEN IN THE PAST 6 MONTHS? NO . ANY NEW EXTREMITY NUMBNESS OR WEAKNESS? NO . CARDIOLOGY: DO YOU HAVE A PACEMAKER OR DEFIBRILLATOR? NO . RESPIRATORY: HAVE YOU BEEN SICK IN THE PAST WEEK? NO . FEVER NO . FLU LIKE SYMPTOMS? NO . COUGH NO . INTEGUMENTARY: DO YOU HAVE ANY RASHES OR OPEN SORES? NO . ALLERGIC/IMMUNO: ARE YOU ALLERGIC TO SHELLFISH OR IV DYE? NO . ANY NEW ALLERGIES? NO . PSYCHIATRIC: DO YOU HAVE THOUGHTS OF HURTING YOURSELF OR SOMEONE ELSE? NO . ARE YOU ABUSED, NEGLECTED, OR IN AN UNSAFE ENVIRONMENT? NO . ENDOCRINOLOGY: ARE YOU DIABETIC? NO . OTHER: DO YOU NEED ANY PRESCRIPTIONS? NO . IF YES, PLEASE LIST: ____ . ANY NEW PROBLEMS WITH YOUR MEDICATIONS? NO . WHEN DID YOU LAST EAT? ____ . WHEN DID YOU LAST DRINK? ____ . WHAT DID YOU LAST DRINK? ____ . NAME OF PERSON DRIVING YOU HOME? ____ . DO YOU HAVE ANY OTHER QUESTIONS OR CONCERNS NO . REVIEWED BY: PROVIDER: LILI MCGARRY . VITAL SIGNS WT 239.6 LBS, HT 71", BMI 33.41 INDEX, BP 144/95 MM HG, HR 66 /MIN, RR 16 /MIN, TEMP 98.0 F, OXYGEN SAT % 98%, NA INITIALS TL 1524. EXAMINATION GENERAL EXAMINATION: LUNGS:LUNG SOUNDS ARE CLEAR. HEART:HEART RATE REGULAR. MUSCULOSKELETAL:*, MUSCLE STRENGTH TESTING 5/5 RLE/ 3/5 LLE. WELL HEALED SURGICAL SCAR NOTED.REPORTS NO FEELING TO LIGHT TOUCH LEFT LEG .REPORTS NORMAL SENSATION LIGHT TOUCH LEFT LOWER EXT.SPECIFIC POINT TENDERNESS OVER LEFT SIJ. DIAGNOSTIC:MRI L/S [id number]-REVIEWED. ASSESSMENTS FAILED BACK SYNDROME - M96.1 (PRIMARY) SACROILIAC JOINT PAIN - M53.3 TREATMENT FAILED BACK SYNDROME STOP AMITRIPTYLINE HCL TABLET, 25 MG, 1 TABLET, ORALLY, ONCE A DAY DISPOSITION & COMMUNICATION FOLLOW UP F/U 2WKS LILI POST PROCEDURE ELECTRONICALLY SIGNED BY ZEFERINO SIMMONS ON 03/29/2017 AT 05:45 PM EDT DISCLAIMER : THIS IS A VISIT SUMMARY EXTRACTED FROM THE [employer] CHART. IT IS NOT A COPY OF THE [employer] PROGRESS NOTE. MTDD
== END ==
LOC: M PAIN 14:20
PROVIDERS: ATTEND Nurse Practitioner Family
DX: M96.1 Postlaminectomy syndrome, not elsewhere classified (principal); M53.3 Sacrococcygeal disorders, not elsewhere classified; I10 Essential (primary) hypertension; E78.00 Pure hypercholesterolemia, unspecified; F32.9 Major depressive disorder, single episode, unspecified; M19.90 Unspecified osteoarthritis, unspecified site; J30.89 Other allergic rhinitis; Z88.8 Allergy status to other drugs, medicaments and biological substances; Z79.899 Other long term (current) drug therapy

== ENCOUNTER → 2017-03-15 | Outpatient (CLI) | payer OTHER ==
[~2017-03-15] MED LIST changes: +BUPIVACAINE HCL 0.25% 30 ML VIAL As Ordered ONE; +ISOVUE-M 300 61% 15ML VIAL (Q9967) As Ordered ONE; +LIDOCAINE 1% SDV INJ 30 ML VIAL As Ordered ONE; +TRIAMCINOLONE ACETONIDE SUSP 40 MG/ML VIAL (J3301) As Ordered ONE; +diazePAM 5 MG TAB As Ordered ONE; +oxyCODONE 5MG TAB As Ordered ONE
--- NOTE | 2017-03-15 19:09 | REP ---
Partial SI joint series: Six views: History: Bilateral SI joint injection for pain. 48 seconds of fluoroscopy time is reported. Findings: A sequence of six fluoroscopically obtained intraprocedural spot radiographs of the SI joints document various needle positions and contrast injections associated with SI joint injection procedure. Signed by Cm Ferro MD 03/16/2017 08:06 A
--- NOTE | 2017-03-26 23:24 | ECWPNPC ---
PATIENT NAME: DANO TORRES : 1970 GENDER: MALE VISIT DATE: 03/15/2017 DISCHARGE DATE: 03/15/17 1438 VISIT LOCKED DATE TIME: PHYSICIAN: TO SAM RESOURCE: TO SAM REASON FOR APPOINTMENT 1. [facility] HISTORY OF PRESENT ILLNESS HISTORY OF PRESENT ILLNESS: PAIN THE PATIENT DESCRIBES THE PAIN... FALL RISK SCREENING: SCREENING :NO FALLS IN THE PAST YEAR CURRENT MEDICATIONS TAKING HYDROCODONE-ACETAMINOPHEN 7.5-325 MG TABLET 1 TABLET NEEDED ORALLY EVERY 6 HRS TAKING AMITRIPTYLINE HCL 25 MG TABLET 1 TABLET ORALLY ONCE A DAY TAKING LISINOPRIL 20 MG TABLET ORALLY DAILY, NOTES: 01-16-172199 TAKING CLARITIN 10 MG TABLET 1 TABLET ORALLY ONCE A DAY, NOTES: 12-19-162199 TAKING REQUIP 3 MG TABLET ORALLY BID, NOTES: 01-16-172199 TAKING PROZAC 20 MG CAPSULE 1 CAP ORALLY BEFORE BEDTIME, NOTES: 01-16-172199 TAKING IRON 325 (65 FE) MG TABLET 1 TABLET ORALLY THREE TIMES DAILY, NOTES: 01-16-172199 TAKING GABAPENTIN 800 MG TABLET 1 TABLET ORALLY THREE TIMES A DAY, NOTES: 01-16-172199 TAKING TIZANIDINE HCL 4 MG CAPSULE 1 CAPSULE NEEDED ORALLY THREE TIMES A DAY, NOTES: 01-16-172199 TAKING HYDROCODONE-ACETAMINOPHEN 7.5-325 MG TABLET 1 TABLET NEEDED ORALLY EVERY 6 HRS TAKING DEPAKOTE 500 MG TABLET DELAYED RELEASE ORALLY PAST MEDICAL HISTORY HYPERTENSION HIGH CHOLESTEROL DEPRESSION NECK PAIN BACK PAIN ARTHRITIS ALLERGIES ENVIRONMENTAL: NASAL CONGESTION: ALLERGY AMITRIPTYLINE HCL: ARM SWELLING: ALLERGY SURGICAL HISTORY LEFT ANKLE RIGHT AND LEFT KNEE BACK 04/2016 GASTRIC BYPASS 2009 HOSPITALIZATION/MAJOR DIAGNOSTIC PROCEDURE SURGERIES REVIEW OF SYSTEMS CONSTITUTIONAL: ANY CHANGE IN YOUR MEDICAL CONDITION? NO . CHILLS NO . FEVER NO . INFECTION: DO YOU HAVE NEW INFECTIONS? NO . DO YOU HAVE HISTORY OF MRSA? NO . MUSCULOSKELETAL: ANY NEW PATTERNS OF PAIN OR NUMBNESS? NO . GASTROENTEROLOGY: ANY NEW CHANGE IN BOWEL CONTROL? NO . GENITOURINARY: ANY NEW CHANGE IN BLADDER CONTROL? NO . IS THERE A CHANCE YOU COULD BE ? NO . HEMATOLOGY/LYMPH: DO YOU TAKE ANY BLOOD THINNERS? (FOR EXAMPLE- COUMADIN, PLAVIX, AGGRENOX, PLATEL, PRADAXA, OR XARELTO) NO . WHEN WAS YOUR LAST DOSE? DATE: TIME: . NEUROLOGY: HAVE YOU FALLEN IN THE PAST 6 MONTHS? NO . ANY NEW EXTREMITY NUMBNESS OR WEAKNESS? NO . CARDIOLOGY: DO YOU HAVE A PACEMAKER OR DEFIBRILLATOR? NO . RESPIRATORY: HAVE YOU BEEN SICK IN THE PAST WEEK? NO . FEVER NO . FLU LIKE SYMPTOMS? NO . COUGH NO . INTEGUMENTARY: DO YOU HAVE ANY RASHES OR OPEN SORES? NO . ALLERGIC/IMMUNO: ARE YOU ALLERGIC TO SHELLFISH OR IV DYE? NO . ANY NEW ALLERGIES? NO . PSYCHIATRIC: DO YOU HAVE THOUGHTS OF HURTING YOURSELF OR SOMEONE ELSE? NO . ARE YOU ABUSED, NEGLECTED, OR IN AN UNSAFE ENVIRONMENT? NO . ENDOCRINOLOGY: ARE YOU DIABETIC? NO . OTHER: DO YOU NEED ANY PRESCRIPTIONS? NO . IF YES, PLEASE LIST: ____ . ANY NEW PROBLEMS WITH YOUR MEDICATIONS? NO . WHEN DID YOU LAST EAT? 1800 . WHEN DID YOU LAST DRINK? 0800 . WHAT DID YOU LAST DRINK? BLACK COFFEE . NAME OF PERSON DRIVING YOU HOME? KIA TORRES . DO YOU HAVE ANY OTHER QUESTIONS OR CONCERNS NO . REVIEWED BY: PROVIDER: . VITAL SIGNS WT 239.6 LBS, HT 71", BMI 33.41 INDEX, BP 144/95 MM HG, HR 66 /MIN, RR 16 /MIN, TEMP 98.0 F, OXYGEN SAT % 98%, NA INITIALS TL 1246, REVIEWED BY: DOMI. ASSESSMENTS SACROILIITIS, NOT ELSEWHERE CLASSIFIED - M46.1 (PRIMARY) PROCEDURES PN SI PRE PROCEDURE DIAGNOSIS SACROILIITIS, SACROILIAC JOINT DYSFUNCTION POST PROCEDURE DIAGNOSIS SACROILIITIS, SACROILIAC JOINT DYSFUNCTION PROCEDURE BILATERAL SACROILIAC JOINT BLOCK SURGEON DR. TO SAM YARN MERCERIZER OPERATOR HELPER NONE ANESTHESIA LOCAL PRE PROCEDURE NOTE PATIENT WITH HISTORY OF CHRONIC LOW BACK PAIN. I EVALUATED THE PATIENT AND REVIEWED THE CHART. I WENT OVER THE RISKS, ALTERNATIVES, AND BENEFITS ASSOCIATED WITH THIS PROCEDURE. THE PATIENT WOULD LIKE TO PROCEED AND GAVE CONSENT TO PERFORM THE PROCEDURE. THE PATIENT DENIES UNEXPLAINABLE WEIGHT LOSS, FEVER, CHILLS, OR NEW CHANGES IN URINARY OR BOWEL CONTROL DESCRIPTION OF PROCEDURE THE PATIENT WAS BROUGHT TO THE PROCEDURE ROOM AND PLACED IN THE PRONE POSITION. THE LUMBOSACRAL AREA WAS CLEANED WITH CHLORAPREP SOLUTION AND DRAPED ASEPTICALLY. THE PROCEDURE WAS DONE UNDER STERILE CONDITIONS. I CHECKED LATERALITY AND THE LEVEL WHERE THE PROCEDURE WAS GOING TO BE PERFORMED WITH THE PATIENT AND THE SUPPORTING STAFF AT THE MOMENT OF THE TIME OUT IN THE PROCEDURE ROOM. UNDER FLUOROSCOPIC GUIDANCE, TARGET POINT WAS SELECTED AT THE LOWER BORDER OF THE RIGHT AND LEFT SACROILIAC JOINT. TARGET POINT WAS SELECTED AFTER MEDIAL ROTATION AND TILT OF THE MAGNIFIER OF THE C-ARM. LIDOCAINE WAS USED TO NUMB THE SKIN AND SUBCUTANEOUS TISSUE BELOW IT. A SPINAL NEEDLE, 22-GAUGE, WAS ADVANCED UNDER FLUOROSCOPIC GUIDANCE AND FOLLOWING PATIENT FEEDBACK UNTIL THE TARGET AREA WAS TOUCHED. THE POSITION OF THE NEEDLE WAS VERIFIED WITH AP AND LATERAL VIEWS. AFTER PROPER POSITION OF THE NEEDLE WAS ACHIEVED, ISOVUE M DYE 30%, 0.25 ML, WAS INJECTED SHOWING SPREAD OF THE DYE. THEN, A SOLUTION OF 20 MG OF KENALOG WAS INJECTED IN RIGHT JOINT WITH 3 ML OF BUPIVACAINE 0.125%. THERE WAS NO EVIDENCE OF BLOOD, PARESTHESIA OR CEREBROSPINAL FLUID DURING THE PROCEDURE. THE PATIENT WAS SENT TO THE RECOVERY ROOM. THE PATIENT WAS MOVING THE EXTREMITIES AND DOING WELL. THERE WAS NO COMPLICATION DURING THE PROCEDURE. FLUOROSCOPY TIME WAS 48 SECONDS POST PROCEDURE NOTE THE PATIENT WILL BE SEEN IN A FOLLOW UP IN THE NEXT FEW WEEKS. INSTRUCTIONS WERE GIVEN, QUESTIONS WERE ANSWERED, AND THE PATIENT EXPRESSED UNDERSTANDING AND AGREED WITH THE PLAN. I, JOHN RUFF, DOCUMENTED THE ABOVE INFORMATION ACTING A SCRIBE FOR DR. SAM. I HAVE REVIEWED THE ABOVE DOCUMENT, WRITTEN BY JOHN RUFF SCRIBE AND I VERIFY THAT IT IS ACCURATE DIAGNOSTIC IMAGING [facility] FLUORO GUIDANCE (PAIN)[id number] PROCEDURE CODES 69682 INJECT SACROILIAC JOINT 6045F RADXPS IN END [id number] PXD DISPOSITION & COMMUNICATION FOLLOW UP 3 WEEKS ELECTRONICALLY SIGNED BY TO SAM MD ON 03/26/2017 AT 06:55 PM EDT DISCLAIMER : THIS IS A VISIT SUMMARY EXTRACTED FROM THE [employer] CHART. IT IS NOT A COPY OF THE [employer] PROGRESS NOTE. BEKAH
== END ==
LOC: M PAIN 12:40
PROVIDERS: ATTEND Anesthesiology
DX: G89.29 Other chronic pain (principal); M46.1 Sacroiliitis, not elsewhere classified; M53.88 Other specified dorsopathies, sacral and sacrococcygeal region; I10 Essential (primary) hypertension; E78.00 Pure hypercholesterolemia, unspecified; F32.9 Major depressive disorder, single episode, unspecified; M19.90 Unspecified osteoarthritis, unspecified site; J30.89 Other allergic rhinitis; Z88.8 Allergy status to other drugs, medicaments and biological substances; Z79.899 Other long term (current) drug therapy
CPT/HCPCS: G0260; J3301; Q9967

== ENCOUNTER → 2017-04-13 | Outpatient (CLI) | payer OTHER ==
[~2017-04-13] MED LIST changes: -BUPIVACAINE HCL 0.25% 30 ML VIAL As Ordered ONE; -ISOVUE-M 300 61% 15ML VIAL (Q9967) As Ordered ONE; -LIDOCAINE 1% SDV INJ 30 ML VIAL As Ordered ONE; -TRIAMCINOLONE ACETONIDE SUSP 40 MG/ML VIAL (J3301) As Ordered ONE; -diazePAM 5 MG TAB As Ordered ONE; -oxyCODONE 5MG TAB As Ordered ONE
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
== END ==
LOC: M PAIN 15:40
PROVIDERS: ATTEND Anesthesiology
DX: M79.1 Myalgia (principal); M54.2 Cervicalgia; G89.29 Other chronic pain; Z79.891 Long term (current) use of opiate analgesic; Z79.899 Other long term (current) drug therapy; J30.9 Allergic rhinitis, unspecified; Z88.8 Allergy status to other drugs, medicaments and biological substances

== ENCOUNTER → 2017-04-21 | Outpatient (CLI) | payer OTHER ==
[~2017-04-21] MED LIST changes: +ANOR1AER INH; +ANORO; +AZIT500T2 PO; +BUPIVACAINE HCL 0.25% 10 ML VIAL As Ordered ONE; +BUPIVACAINE HCL 0.25% 30 ML VIAL As Ordered ONE; +CEFD1CAP8 PO; +CETI10TA PO; +DIVA500T3 PO; +FERR1TAB8 PO; +FLUO20CA19 PO; +GABA800T PO; +LISI-538 PO; +MONT10TA2 PO; +OXYC-517 PO; +PRED10PA PO; +ROPI3TAB PO; +TIZANIDINE; +TRAZ-136 PO; +TRIAMCINOLONE ACETONIDE SUSP 40 MG/ML VIAL (J3301) As Ordered ONE; +VITA1CAP40 PO; +ZANA4TAB PO; +diazePAM 5 MG TAB As Ordered ONE; +oxyCODONE 5MG TAB As Ordered ONE
--- NOTE | 2017-04-29 | ECWPNPC ---
PATIENT NAME: DANO TORRES : 1970 GENDER: MALE VISIT DATE: 04/21/2017 DISCHARGE DATE: 04/21/178 VISIT LOCKED DATE TIME: PHYSICIAN: TO SAM RESOURCE: TO SAM REASON FOR APPOINTMENT 1. TPI HISTORY OF PRESENT ILLNESS HISTORY OF PRESENT ILLNESS: PAIN THE PATIENT DESCRIBES THE PAIN... FALL RISK SCREENING: SCREENING :NO FALLS IN THE PAST YEAR CURRENT MEDICATIONS TAKING HYDROCODONE-ACETAMINOPHEN 7.5-325 MG TABLET 1 TABLET NEEDED ORALLY EVERY 6 HRS, NOTES: 04/20/17 TAKING LISINOPRIL 20 MG TABLET ORALLY DAILY, NOTES: 04/20/17 TAKING CLARITIN 10 MG TABLET 1 TABLET ORALLY ONCE A DAY, NOTES: 04/20/17 TAKING REQUIP 3 MG TABLET ORALLY BID, NOTES: 04/20/17 TAKING PROZAC 20 MG CAPSULE 1 CAP ORALLY BEFORE BEDTIME, NOTES: 04/20/17 TAKING IRON 325 (65 FE) MG TABLET 1 TABLET ORALLY THREE TIMES DAILY, NOTES: 04/20/17 TAKING GABAPENTIN 800 MG TABLET 1 TABLET ORALLY THREE TIMES A DAY, NOTES: 04/20/17 TAKING TIZANIDINE HCL 4 MG CAPSULE 1 CAPSULE NEEDED ORALLY THREE TIMES DAILY, NOTES: 04/20/17 TAKING DEPAKOTE 500 MG TABLET DELAYED RELEASE ORALLY , NOTES: 04/20/17 DISCONTINUED AMITRIPTYLINE HCL 25 MG TABLET 1 TABLET ORALLY ONCE A DAY UNKNOWN HYDROCODONE-ACETAMINOPHEN 7.5-325 MG TABLET 1 TABLET NEEDED ORALLY EVERY 6 HRS MEDICATION LIST REVIEWED AND RECONCILED WITH THE PATIENT PAST MEDICAL HISTORY HYPERTENSION HIGH CHOLESTEROL DEPRESSION NECK PAIN BACK PAIN ARTHRITIS ALLERGIES ENVIRONMENTAL: NASAL CONGESTION: ALLERGY AMITRIPTYLINE HCL: ARM SWELLING: ALLERGY REVIEW OF SYSTEMS REVIEWED BY: PROVIDER: . CONSTITUTIONAL: ANY CHANGE IN YOUR MEDICAL CONDITION? NO . CHILLS NO . FEVER NO . INFECTION: DO YOU HAVE NEW INFECTIONS? NO . DO YOU HAVE HISTORY OF MRSA? NO . MUSCULOSKELETAL: ANY NEW PATTERNS OF PAIN OR NUMBNESS? NO . GASTROENTEROLOGY: ANY NEW CHANGE IN BOWEL CONTROL? NO . GENITOURINARY: ANY NEW CHANGE IN BLADDER CONTROL? NO . IS THERE A CHANCE YOU COULD BE ? NO . HEMATOLOGY/LYMPH: DO YOU TAKE ANY BLOOD THINNERS? (FOR EXAMPLE- COUMADIN, PLAVIX, AGGRENOX, PLATEL, PRADAXA, OR XARELTO) NO . WHEN WAS YOUR LAST DOSE? DATE: TIME: . NEUROLOGY: HAVE YOU FALLEN IN THE PAST 6 MONTHS? NO . ANY NEW EXTREMITY NUMBNESS OR WEAKNESS? NO . CARDIOLOGY: DO YOU HAVE A PACEMAKER OR DEFIBRILLATOR? NO . RESPIRATORY: HAVE YOU BEEN SICK IN THE PAST WEEK? NO . FEVER NO . FLU LIKE SYMPTOMS? NO . COUGH NO . INTEGUMENTARY: DO YOU HAVE ANY RASHES OR OPEN SORES? NO . ALLERGIC/IMMUNO: ARE YOU ALLERGIC TO SHELLFISH OR IV DYE? NO . ANY NEW ALLERGIES? NO . PSYCHIATRIC: DO YOU HAVE THOUGHTS OF HURTING YOURSELF OR SOMEONE ELSE? NO . ARE YOU ABUSED, NEGLECTED, OR IN AN UNSAFE ENVIRONMENT? NO . ENDOCRINOLOGY: ARE YOU DIABETIC? NO . OTHER: DO YOU NEED ANY PRESCRIPTIONS? NO . IF YES, PLEASE LIST: ____ . ANY NEW PROBLEMS WITH YOUR MEDICATIONS? NO . WHEN DID YOU LAST EAT? ____04/21/17 . WHEN DID YOU LAST DRINK? ____1200 . WHAT DID YOU LAST DRINK? ____BLACK COFFEE . NAME OF PERSON DRIVING YOU HOME? ____KIA TORRES . DO YOU HAVE ANY OTHER QUESTIONS OR CONCERNS NO . VITAL SIGNS WT 219.0 LBS, HT 71", BMI 30.54 INDEX, BP 126/82 MM HG, HR 79 /MIN, RR 16 /MIN, TEMP 98.2 F, OXYGEN SAT % 94%, NA INITIALS TL 1447, REVIEWED BY: VD. ASSESSMENTS MYALGIA - M79.1 (PRIMARY) PROCEDURES PN TRIGGER POINT INJECTION WITH STEROIDS PRE PROCEDURE DIAGNOSIS 1. MYALGIA 2. PAIN AT BILATERAL NECK AREA POST PROCEDURE DIAGNOSIS 1. MYALGIA 2. PAIN AT BILATERAL NECK AREA PROCEDURE TRIGGER POINT INJECTION AT BILATERAL NECK AREA SURGEON DR. TO SAM PATTERN SETTER NONE ANESTHESIA LOCAL PRE PROCEDURE NOTE THE PATIENT HAS A HISTORY OF CHRONIC PAIN AT THE RIGHT AND LEFT NECK AREA. I EVALUATE THE PATIENT AND REVIEWED THE CHART. THERE IS EVIDENCE OF BANDS OF TISSUE WITH RESTRICTION OF MOVEMENT AND PRESENCE OF TRIGGER POINT AT THE AFFECTED AREA. I WENT OVER THE RISKS, ALTERNATIVES, AND BENEFITS ASSOCIATED WITH THIS PROCEDURE. THE PATIENT WOULD LIKE TO PROCEED AND GIVE CONSENT TO PERFORMED THE PROCEDURE. THE PATIENT DENIES UNEXPLAINABLE WEIGHT LOSS, FEVER, CHILLS, OR NEW CHANGES IN URINARY OR BOWEL CONTROL DESCRIPTION OF PROCEDURE THE PATIENT WAS BROUGHT TO THE PROCEDURE ROOM AND PLACED IN THE SITTING POSITION. THE AREA WAS CLEANED WITH ALCOHOL. THE PROCEDURE WAS DONE USING ASEPTIC STERILE TECHNIQUE. I CHECKED LATERALITY AND THE LEVEL WHERE THE PROCEDURE WAS GOING TO BE PERFORMED WITH THE PATIENT AND THE SUPPORTING STAFF AT THE MOMENT OF THE TIME OUT IN THE PROCEDURE ROOM. USING A 25-GAUGE NEEDLE, TRIGGER POINTS WERE INJECTED AT THE RIGHT AND LEFT NECK AREA WITH A TOTAL OF 40 ML OF BUPIVACAINE 0.25% AND KENALOG 40 MG. THERE WAS NO EVIDENCE OF BLOOD, PARESTHESIA OR CEREBROSPINAL FLUID DURING THE PROCEDURE. THE PATIENT WAS SENT TO THE RECOVERY ROOM. THE PATIENT WAS MOVING THE EXTREMITIES AND DOING WELL. THERE WAS NO COMPLICATION DURING THE PROCEDURE POST PROCEDURE NOTE THE PATIENT WILL BE SEEN IN A FOLLOW UP IN THE NEXT FEW WEEKS. INSTRUCTIONS WERE GIVEN, QUESTIONS WERE ANSWERED, AND THE PATIENT EXPRESSED UNDERSTANDING AND AGREES WITH THE PLAN. I, ANKUSH HOWELL, DOCUMENTED THE ABOVE INFORMATION ACTING A SCRIBE FOR DR. SAM. I HAVE REVIEWED THE ABOVE DOCUMENT, WRITTEN BY ANKUSH SANDOVAL AND I VERIFY THAT IT IS ACCURATE PROCEDURE CODES 01023 INJ TRIGGER POINT 11/08 [facility] [place] DISPOSITION & COMMUNICATION FOLLOW UP 3 WEEKS ELECTRONICALLY SIGNED BY TO SAM MD ON 04/28/2017 AT 12:23 PM EDT DISCLAIMER : THIS IS A VISIT SUMMARY EXTRACTED FROM THE [employer] CHART. IT IS NOT A COPY OF THE [email or web address] PROGRESS NOTE. [email or web address]
== END ==
LOC: M PAIN 15:00
PROVIDERS: ATTEND Anesthesiology
DX: G89.29 Other chronic pain (principal); M54.2 Cervicalgia; M79.1 Myalgia; Z79.891 Long term (current) use of opiate analgesic; Z79.899 Other long term (current) drug therapy; J30.9 Allergic rhinitis, unspecified; Z88.8 Allergy status to other drugs, medicaments and biological substances
CPT/HCPCS: 20552; J3301

== ENCOUNTER 2017-06-09 11:36 | Inpatient (IN) | payer OTHER ==
[~2017-06-09] VITALS: Ht 180.3 cm; Wt 108.0 kg
[~2017-06-09 11:36] MED LIST changes: -ANOR1AER INH; -ANORO; -AZIT500T2 PO; -BUPIVACAINE HCL 0.25% 10 ML VIAL As Ordered ONE; -BUPIVACAINE HCL 0.25% 30 ML VIAL As Ordered ONE; -CEFD1CAP8 PO; -CETI10TA PO; -DIVA500T3 PO; -FERR1TAB8 PO; -FLUO20CA19 PO; -GABA800T PO; -LISI-538 PO; -MONT10TA2 PO; -OXYC-517 PO; -PRED10PA PO; -ROPI3TAB PO; -TIZANIDINE; -TRAZ-136 PO; -TRIAMCINOLONE ACETONIDE SUSP 40 MG/ML VIAL (J3301) As Ordered ONE; -VITA1CAP40 PO; -ZANA4TAB PO; -diazePAM 5 MG TAB As Ordered ONE; -oxyCODONE 5MG TAB As Ordered ONE
[2017-06-09] MEDS ORDERED: ANORO (11:54)
[2017-06-09] MEDS ORDERED: OXYC-517 PO (11:54)
[2017-06-09] MEDS ORDERED: DIVA500T3 PO (11:54)
[2017-06-09] MEDS ORDERED: FLUO20CA19 PO (11:54)
[2017-06-09] MEDS ORDERED: MONT10TA2 PO (11:54)
[2017-06-09] MEDS ORDERED: VITA1CAP40 PO (11:54)
[2017-06-09] MEDS ORDERED: TRAZ-136 PO (11:54)
[2017-06-09] MEDS ORDERED: CETI10TA PO (11:54)
[2017-06-09] MEDS ORDERED: ROPI3TAB PO (11:54)
[2017-06-09] MEDS ORDERED: GABA800T PO (11:54)
[2017-06-09] MEDS ORDERED: TIZANIDINE (11:54)
[2017-06-09] MEDS: IPRATROPIUM 0.5MG/ALBUTEROL 2.5MG INH SOL UD 3ML (DUONEB)(J7620) NEB SCH ×3 (11:54→12:10)
[2017-06-09] MEDS ORDERED: LISI-538 PO (11:54)
[2017-06-09] MEDS ORDERED: FERR1TAB8 PO (11:54)
[2017-06-09 12:07] LABS: ABG BASE EXCESS 3.3 (-2.0-2.0); ABG HCO3 29.2 MEQ/L (22.0-26.0); ABG PARTIAL PRESSURE CO2 48.7 mmHg (35.0-45.0); ABG PARTIAL PRESSURE O2 64.9 mmHg (75.0-100.0); ABG STANDARD HCO3 27.3 MEQ/L (22.0-26.0); ABG TOTAL CO2 30.6 MEQ/L (22.0-29.0); ABG pH (ARTERIAL) 7.395 UNITS (7.350-7.450)
[2017-06-09 12:09] LABS: EOS % 0.8 % (0.0-3.0); INR 1.04; LARGE UNSTAINED CELL % 2.2 % (0.0-4.0); LYMPH # 2.4 K/mm3 (1.5-4.5); LYMPH % 18.5 % (24.0-44.0); MEAN CORPUSCULAR HEMOGLOBIN 30.1 pg (27.0-33.0); MEAN CORPUSCULAR HGB CONC 33.4 g/dl (32.0-36.5); NEUTROPHILS # 8.8 K/mm3 (1.8-7.7); NEUTROPHILS % 67.5 % (36.0-66.0); PLATELET COUNT, AUTOMATED 279 k/mm3 (150-450); RED CELL DISTRIBUTION WIDTH 12.7 % (11.5-14.5); WHITE BLOOD COUNT 13.1 K/mm3 (4.0-10.0)
[2017-06-09 12:10] LABS: BASO # 0.1 K/mm3 (0.0-0.2); EOS # 0.1 K/mm3 (0.0-0.50); LARGE UNSTAINED CELL # 0.3 K/mm3 (0.0-0.4); MONO # 1.3 K/mm3 (0.0-0.8)
--- NOTE | 2017-06-09 12:10 | REP ---
Chest one-view HISTORY: Chest pain Comparison: 09/25/2014 Linear density is present in the left lower lobe consistent with atelectasis or scar. The right lung is clear. The heart is normal in size. The pulmonary vasculature is normal in appearance. Impression: Left lower lobe atelectasis or scar. Signed by Ashish Wilder MD 06/09/2017 12:02 P
[2017-06-09 12:26] LABS: ALBUMIN 3.6 GM/DL (3.2-5.2); ALBUMIN/GLOBULIN RATIO 0.88 (1.00-1.93); ALKALINE PHOSPHATASE 99 U/L (45-117); ALT/SGPT 18 U/L (12-78); ANION GAP 9 MEQ/L (8-16); AST/SGOT 14 U/L (15-37); BILIRUBIN,DIRECT 0.1 MG/DL (0.0-0.2); BILIRUBIN,TOTAL 0.5 MG/DL (0.2-1.0); BLOOD UREA NITROGEN 12 MG/DL (7-18); CALCIUM LEVEL 9.5 MG/DL (8.5-10.1); CARBON DIOXIDE LEVEL 29 MEQ/L (21-32); CHLORIDE LEVEL 96 MEQ/L (98-107); CREATININE FOR GFR 0.81 MG/DL (0.70-1.30); GLOMERULAR FILTRATION RATE > 60.0 (>60); GLUCOSE, FASTING 112 MG/DL (70-105); POTASSIUM SERUM 3.7 MEQ/L (3.5-5.1); SODIUM LEVEL 134 MEQ/L (136-145); TOTAL PROTEIN 7.7 GM/DL (6.4-8.2)
[2017-06-09] MEDS ORDERED: KETOROLAC 30 MG/ML VIAL (J1885) IV ONE (12:45)
[2017-06-09] MEDS ORDERED: ISOVUE-370 76% 100ML VIAL (Q9967) As Ordered ONE (13:10)
[2017-06-09] MEDS: LEVALBUTEROL 1.25 MG/0.5 ML CONCENTRATE NEB NEB SCH ×2 (14:00→19:59)
[2017-06-09] MEDS ORDERED: cefTRIAXone SOD 1 GM in D5W MINI-BAG PLUS 50 ML IV ONE (14:15)
[2017-06-09] MEDS ORDERED: AZITHROMYCIN INJ 500 MG, VIAL MATE ADAPTER 1 EACH in D5W 250 ML IV ONE (14:15)
--- NOTE | 2017-06-09 14:26 | REP ---
CT angiogram chest: 06/09/2017. Clinical history: Pleuritic chest pain, dyspnea. Comparison portable chest today, PA and lateral chest 09/25/2014. Technique: The patient received 75 mL of bolus of Isovue 370. Coronal and sagittal thick slab MIP reformatting after scanning through the chest. Findings: Lungs are well inflated. There is infiltrate in the left lower lobe deep sulcus with some air bronchograms and a small left effusion. This is below the area of scarring in the left base on chest x-ray and would largely be obscured on a portable chest. The right lung is well inflated and clear. There is no evidence of cylindrical bronchiectasis, nodule or mass or other acute infiltrate. Heart is not enlarged. There is no pericardial thickening or effusion. The aorta is without aneurysm or dissection. The main, right and left pulmonary arteries are without filling defects. Lobar, segmental and subsegmental arteries are without filling defects or vessel cutoff. There is no pathologic sized mediastinal or hilar adenopathy and no axillary, supraclavicular mass. Bone windows show the spine with minor degenerative changes, but remainder of the visualized bones in the chest are without fracture or focal lesion. In the upper abdomen that portion of liver included in the spleen showed no acute finding. There are clips from prior cholecystectomy. Upper poles of kidneys show a small cyst posteriorly on the left. Visualized pancreas is unremarkable. No calcified stone in the common bile duct. Adrenal glands normal. Impression: 1. There is no CT evidence for pulmonary thromboembolism. 2. Infiltrate with small effusion in the left lower lobe posteriorly in the deep sulcus. Some scarring peripherally at the left lower lobe. No other significant finding. Signed by Orion Morel MD 06/09/2017 06:35 P
[2017-06-09] MEDS ORDERED: methylPREDNISolone INJ 125 MG/2 ML VIAL (J2930) IV ONE (14:30)
[2017-06-09] MEDS ORDERED: ZANA4TAB PO (14:36)
[2017-06-09] MEDS ORDERED: ANOR1AER INH (14:36)
[2017-06-09] MEDS ORDERED: LEVALBUTEROL 1.25 MG/0.5 ML CONCENTRATE NEB NEB PRN (15:00)
--- NOTE | 2017-06-09 16:05 | HPE ---
DATE OF ADMISSION: 06/09/2017 CHIEF COMPLAINT: A 46-year-old gentleman complaining of shortness of breath. 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 Denies any chronic obstructive pulmonary disease (COPD) or asthma diagnosis but utilizes home inhaler and used to be a former smoker, who presents complaining of shortness of breath. Patient complains that he had shortness of breath that started last night. In addition, yellowish sputum that came on suddenly. Patient is a former smoker, but he quit 3 years ago. 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 He was exposed to polyethylene smell due to his profession that is new for him. He states that he does not utilize a mask while working. I did strongly advise him to utilize a mask while being exposed to any chemical at work, but patient states that he also developed left lower quadrant abdominal pain that seems positional, as it improved while sitting upright but worse when he was lying down. He did have this pain for the past 2 days that seemed to progressively worsen and subsequently developed this cough and shortness of breath. Patient denies any fevers or chills. Patient did not point to his chest when he complained of this pain. Denies any musculoskeletal problems that may have contributed to this, although he is on chronic pain medication, in addition, muscle relaxant due to his progression. Patient was evaluated in the emergency room. As patient had shortness of breath, was given nebulizer, which improved his shortness of breath. His oxygenation lowest is 88% on room air, but currently is 92 and improvement with the nebulizer. As per endorsement, patient has severe wheezing. On my examination wheezing has improved, but there is still minimal air entry themes. Patient was also evaluated with the CT angiogram (CTA) of the chest and as per radiology showed no pulmonary embolism (PE) but did show infiltrate with small effusion in the left lower lobe posteriorly in the deep sulcus. In addition, some scarring peripherally at the left lower lobe. No other significant finding. Patient is being admitted for further evaluation for most likely COPD exacerbation with pneumonia. Suspect his exposure to a new chemical may have contributed to exacerbating this problem. REVIEW OF SYSTEMS: A 10-point review of systems is negative other than those described in the history of present illness (HPI). Patient seems a little bit anxious to go home, as he has to work, but he is willing to stay overnight for observation and further treatment with inhalers. PAST MEDICAL HISTORY: Significant for: 1. Former smoker. 2. Hypertension. 3. Mood disorder. 4. Allergies. 5. Anemia. 6. Chronic pain. SURGICAL HISTORY: Includes: 1. Gastric bypass. 2. Left knee surgery times three. 3. Right surgery times two. 4. Left hand surgery. 5. Left ankle surgery. 6. Left steel kalpesh placement. 7. Cholecystectomy. 8. Back surgery. SOCIAL HISTORY: Patient used to smoke but quit 3 years ago. Denies any alcohol or drug abuse. FAMILY MEDICAL HISTORY: Significant or father with heart disease around 50. Family history also of cancer, but type of cancer unknown. ALLERGIES: Patient has no known drug allergies. MEDICATIONS FROM HOME: - Anoro Ellipta one puff daily as needed - cetirizine 10 mg by mouth at bedtime - divalproex 500 mg by mouth at bedtime - vitamin D 50,000 units by mouth weekly - ferrous sulfate 325 mg by mouth three times a day - fluoxetine 20 mg by mouth at bedtime - gabapentin 800 mg by mouth three times a day - lisinopril 20 mg by mouth at bedtime - montelukast 10 mg by mouth at bedtime - oxycodone 5 mg every 6 hours as needed for pain - ropinirole 3 mg by mouth twice a day - Zanaflex 4 mg one tablet three times a day as needed for muscle spasm - trazodone 100 mg by mouth at bedtime PHYSICAL EXAMINATION: VITAL SIGNS: Initially his temperature was 98.9, heart rate of 94, respiratory rate of 22, blood pressure is 135/98, saturating 98% on 3 liters nasal cannula. Currently patient's heart rate is 82, blood pressure is 117/56, saturating 92% on oxygenation. HEENT: Normocephalic. No trauma. Inspection of eyes, nose, and throat within normal. Pupils equal, round, and reactive to light and accommodation (PERRLA). Mucosa is moist. NECK: Supple. No tracheal deviation. CARDIAC: S1, S2, regular rate and rhythm. Pulses present. LUNGS: Equal air entry. Did not hear any wheezes, rales, or rhonchi. ABDOMEN: Soft and nontender. Bowel sounds present. Lower extremities: No significant pitting edema. Capillary refill present on all four extremities. SKIN: Intact. Warm to touch, afebrile. Patient is currently awake, alert, oriented times three. Cranial nerve grossly intact. Motor and sensory are intact. Normal mood and affect for current situation. DIAGNOSTIC STUDIES: Patient had WBC of 13.1, hemoglobin and hematocrit and platelets within normal. Comprehensive metabolic profile is within normal except sodium 134, chloride 96, glucose 112. AST is 14. Other than those mentioned above, comprehensive metabolic profile is within normal. Cardiac enzyme times one has been negative. BNP is within normal. TSH is within normal. Lipase is 63. Coagulation study: INR and PT is within normal. Blood gas: A pH of 7.395 on ABG, pCO2 of 48.7, oxygen of 64.9, bicarbonate of 29.2, saturating 94%. Toxicology: Valproic acid level is less than 3. Blood cultures are pending at this time. Patient's chest x-ray showed left lower lobe atelectasis or scar. CT angiogram showed as per radiology no pulmonary embolism. Infiltrate with small effusion in the left lower lobe posteriorly in the deep sulcus. Some scarring peripherally at the left lower lobe. No other significant finding. ASSESSMENT AND PLAN: This is a 46-year-old gentleman with significant past medical history of being a former smoker. Stopped smoking 3 years ago. On inhaler daily as needed. 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 Recently exposed to new chemical polyethylene, hypertension, mood disorder, allergies, anemia, chronic pain, who presented complaining of shortness of breath, sputum production, and left upper quadrant abdominal pain, rib pain. 1. Chronic obstructive pulmonary disease (COPD) exacerbation, pneumonia, most likely from irritant from new chemical exposure, a polyethylene possibility. Abnormal CT angiogram showing infiltrate on the left side. Will empirically treat him with antibiotics and Solu-Medrol. Continue nebulizer, oxygen therapy as needed, but maintain his oxygenation between 88-92 and clear mentation. Will also resume home inhaler as needed but utilize as-needed inhalers and every 6 inhaler as well. Sputum culture and the blood cultures are pending. Will obtain an EKG, cardiac enzymes for further evaluation. Recommend using mask at work was strongly advised. 2. Hypertension. Resume home regimen of lisinopril. 3. Mood stabilizer to be resumed, including fluoxetine, gabapentin, trazodone, and divalproex. 4. Allergies. Resume home regimen as needed. 5. Anemia. Resume iron. 6. Chronic pain. Resume home regimen of oxycodone, Zanaflex, and Requip. 7. Deep vein thrombosis (DVT) prophylaxis. MTDD
[2017-06-09] MEDS: oxyCODONE 5MG TAB PO PRN ×2 (16:49→22:50)
--- NOTE | 2017-06-09 18:39 | ECGEPIP ---
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
[2017-06-09 18:45] VITALS: BP 131/78
[2017-06-09] MEDS: FERROUS SULFATE 325MG TAB PO SCH ×2 (18:49→21:04)
[2017-06-09] MEDS: GABAPENTIN 400 MG CAP PO SCH ×2 (18:49→21:03)
[2017-06-09] MEDS: LISINOPRIL 20 MG TAB PO SCH (21:03)
[2017-06-09] MEDS: DIVALPROEX 500 MG TAB PO SCH (21:04)
[2017-06-09] MEDS: MONTELUKAST 10 MG TAB PO SCH (21:04)
[2017-06-09] MEDS: HEPARIN SOD (PORCINE) 5000 UNITS/ML VIAL SQ SCH (21:04)
[2017-06-09] MEDS: FLUoxetine 20 MG CAP PO SCH (21:04)
[2017-06-09] MEDS: traZODone 100 MG TAB PO SCH (21:04)
[2017-06-09] MEDS: rOPINIRole 1MG TAB PO SCH (21:04)
--- NOTE | 2017-06-09 21:39 | ECGEPIP ---
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
[2017-06-09 22:00] VITALS: BP 127/72
[2017-06-09] MEDS: methylPREDNISolone INJ 125 MG/2 ML VIAL (J2930) IV SCH (22:49)
[2017-06-10] MEDS: LEVALBUTEROL 1.25 MG/0.5 ML CONCENTRATE NEB NEB SCH ×4 (02:00→20:15)
[2017-06-10 06:00] VITALS: BP 106/56
[2017-06-10] MEDS: HEPARIN SOD (PORCINE) 5000 UNITS/ML VIAL SQ SCH ×3 (06:00→22:08)
[2017-06-10] MEDS: methylPREDNISolone INJ 125 MG/2 ML VIAL (J2930) IV SCH (06:00)
[2017-06-10 07:01] LABS: MEAN CORPUSCULAR HGB CONC 34.3 g/dl (32.0-36.5); MEAN CORPUSCULAR VOLUME 90.5 fl (80.0-96.0); RED CELL DISTRIBUTION WIDTH 12.8 % (11.5-14.5); WHITE BLOOD COUNT 17.4 K/mm3 (4.0-10.0)
[2017-06-10 07:25] LABS: ANION GAP 7 MEQ/L (8-16); BLOOD UREA NITROGEN 21 MG/DL (7-18); CALCIUM LEVEL 9.6 MG/DL (8.5-10.1); CARBON DIOXIDE LEVEL 27 MEQ/L (21-32); CHLORIDE LEVEL 102 MEQ/L (98-107); CREATININE FOR GFR 0.91 MG/DL (0.70-1.30); GLOMERULAR FILTRATION RATE > 60.0 (>60); GLUCOSE, FASTING 194 MG/DL (70-105); POTASSIUM SERUM 4.4 MEQ/L (3.5-5.1); SODIUM LEVEL 136 MEQ/L (136-145)
[2017-06-10 08:09] VITALS: O2SAT 91
[2017-06-10 08:10] VITALS: O2SAT 91
[2017-06-10] MEDS: oxyCODONE 5MG TAB PO PRN ×3 (09:17→22:10)
[2017-06-10] MEDS: rOPINIRole 1MG TAB PO SCH ×2 (09:17→22:09)
[2017-06-10] MEDS: GABAPENTIN 400 MG CAP PO SCH ×3 (09:18→22:10)
[2017-06-10] MEDS: NS 1,000 ML IV SCH ×2 (09:18→22:11)
[2017-06-10] MEDS: FERROUS SULFATE 325MG TAB PO SCH ×3 (09:18→22:08)
[2017-06-10 14:00] VITALS: BP 129/62
[2017-06-10] MEDS ORDERED: cefTRIAXone SOD 1 GM in D5W MINI-BAG PLUS 50 ML IV SCH (15:00)
[2017-06-10] MEDS ORDERED: AZITHROMYCIN INJ 500 MG, VIAL MATE ADAPTER 1 EACH in D5W 250 ML IV SCH (16:00)
[2017-06-10] MEDS ORDERED: methylPREDNISolone INJ 40 MG/1 ML VIAL (J2920) IV SCH (19:00)
[2017-06-10 22:00] VITALS: BP 126/60
[2017-06-10] MEDS: MONTELUKAST 10 MG TAB PO SCH (22:08)
[2017-06-10] MEDS: traZODone 100 MG TAB PO SCH (22:08)
[2017-06-10 22:09] VITALS: BP 129/62
[2017-06-10] MEDS: LISINOPRIL 20 MG TAB PO SCH (22:09)
[2017-06-10] MEDS: FLUoxetine 20 MG CAP PO SCH (22:10)
[2017-06-10] MEDS: DIVALPROEX 500 MG TAB PO SCH (22:11)
--- NOTE | 2017-06-10 22:32 | IPNPDOC ---
Text Note Date of Service The patient was seen on 06/10/17. NOTE Subjective: Patient seen and examined at bedside. Patient admits to breathing better and would like to go home. Per nurse, patient desat to low 80 at night if not on oxygen. Denies any chest pain, sob, abdominal pain, nausea, vomiting, diarrhea, constipation, blood in urine or stool. Denies any other current new complaints. Objective: Vitals: (See below) General: Patient is a middle aged male laying comfortably in bed, AAOx3, not in apparent distress, with head elevated at 30 degrees HEENT: Normal cephalic atraumatic, Extraocular motion intact, pupil equal round and reactive to light, ~mucosal membrane moist, neck supple, no neck lymphadenopathy Cardio: Distant heart sound due to increased AP diameter. RRR, Normal S1, S2, No murmur/rubs/gallops Pulm: Increased AP diameter, Clear to auscultations bilaterally, no wheezing, rales, or rhonchi. Abdomen: + bowel sounds, soft, none tender, none distended, no peritoneal signs , no ecchymosis, no masses that were palpable Ext: No edema, clubbing, or cyanosis Skin: Warm and dry Neuro: Cranial Nerve 2 through 12 intact, No focal neurological deficit Labs ( See below) Most significantly: WBC 17.4 from 13, hgb 13 from 14.5, BUN 21 from 12 Images/Procedures: Assessment and Plan: Community acquired pneumonia with possible COPD exacerbation - Possible from exposure of polyethylene - Patient denies diagnosed with COPD however was a heavy smoker and is on Ellipta at home - CXR shows infiltrate on left side - Continue empiric antibiotic and Solu-Medrol - Oxygen as needed - Lung sounds improved Desaturation at night - Possible JOHN, patient used to be obese had gastric by pass - Will likely need oxygen at night and JOHN work up outpatient ~Leukocytosis - Likely related to steroid Anemia: Dilutional most likely - LDH ordered to see if there is hemolysis due to elevated BUN and K was higher today - Continue iron will recheck iron level HTN - No lisinopril Psychiatric disease - continue fluoxetine, gabapentin, trazodone, divalproex Allergies - resume home med Chronic pain - resume home oxycodone, zanaflex, requip s/p Gastric bypass - stable DVT prophylaxis: Hep 5k q8 Fluid, Electrolytes, Nutrition: NS 80 mlh, COPD diet Code: not discussed Disposition: Patient would like to go home tomorrow. Will switch him to PO meds. VS,Fishbone, I+O VS, Fishbone, I+O Laboratory Tests 06/10/17 06:51 Red Blood Count 4.22 L, Mean Corpuscular Volume 90.5, Mean Corpuscular Hemoglobin 31.0, Mean Corpuscular Hemoglobin Concent 34.3, Red Cell Distribution Width 12.8, Calcium Level 9.6 Vital Signs Date Time Temp Pulse Resp B/P (MAP) Pulse Ox O2 Delivery O2 Flow Rate FiO2 06/10/17 22:10 19 06/10/17 22:09 129/62 06/10/17 16:44 92 Nasal Cannula 2.0 06/10/17 14:00 98.6 84 I&O- Last 24 Hours up to 6 AM 06/10/17 06:00 Intake Total 305 ml Output Total 200 ml Balance 105 ml GME ATTESTATION GME ATTESTATION My preceptor for this patient encounter was physically present in the building during the encounter and was fully available. As needed, all aspects of the patient interview, examination, medical decision making process, and medical care plan development were reviewed and approved by the preceptor. Preceptor is aware and concurs with the plan as stated in the body of this note and will attest to such by his/her cosignature. ATTENDING NOTE I, Rajesh Baltazar, have both independently examined this patient as well as reviewed the documentation. I have discussed in detail with the resident the findings and plan of treatment as documented in the residents documentation. I will continue to follow the patient and offer further guidance to the patients care as necessary during this hospital stay. HAMILTON MELO DO Jun 10, 2017 22:32 RAJESH BALTAZAR MD Jun 11, 2017 17:37
[2017-06-11] MEDS: LEVALBUTEROL 1.25 MG/0.5 ML CONCENTRATE NEB NEB SCH ×2 (01:07→07:21)
[2017-06-11] MEDS: HEPARIN SOD (PORCINE) 5000 UNITS/ML VIAL SQ SCH (05:50)
[2017-06-11] MEDS: oxyCODONE 5MG TAB PO PRN ×2 (05:51→11:43)
[2017-06-11 06:00] VITALS: BP 130/63
[2017-06-11 06:56] LABS: MEAN CORPUSCULAR HEMOGLOBIN 30.4 pg (27.0-33.0); MEAN CORPUSCULAR HGB CONC 33.1 g/dl (32.0-36.5); MEAN CORPUSCULAR VOLUME 91.7 fl (80.0-96.0); WHITE BLOOD COUNT 23.5 K/mm3 (4.0-10.0)
[2017-06-11 07:19] LABS: ANION GAP 7 MEQ/L (8-16); BLOOD UREA NITROGEN 13 MG/DL (7-18); CALCIUM LEVEL 9.2 MG/DL (8.5-10.1); CARBON DIOXIDE LEVEL 29 MEQ/L (21-32); CHLORIDE LEVEL 105 MEQ/L (98-107); FERRITIN 56 NG/ML (26-388); GLOMERULAR FILTRATION RATE > 60.0 (>60); GLUCOSE, FASTING 124 MG/DL (70-105); PERCENT SATURATION 5.3 % (19.7-50.0); POTASSIUM SERUM 4.4 MEQ/L (3.5-5.1); SODIUM LEVEL 141 MEQ/L (136-145); TOTAL IRON BINDING CAPACITY 393 UG/DL (250-450)
[2017-06-11] MEDS ORDERED: predniSONE 20 MG TAB PO SCH (09:00)
[2017-06-11] MEDS ORDERED: AZIT500T2 PO (09:27)
[2017-06-11] MEDS ORDERED: PRED10PA PO (09:27)
[2017-06-11] MEDS ORDERED: CEFD1CAP8 PO (09:27)
[2017-06-11] MEDS: rOPINIRole 1MG TAB PO SCH (11:43)
[2017-06-11] MEDS: GABAPENTIN 400 MG CAP PO SCH (11:44)
[2017-06-11] MEDS: FERROUS SULFATE 325MG TAB PO SCH (11:44)
[2017-06-11 12:30] VITALS: BP 130/77
--- NOTE | 2017-06-11 15:45 | DSES ---
DATE OF ADMISSION: 06/10/2017 DATE OF DISCHARGE: 06/11/2017 TIME SEEN: 10:00 a.m. ADMISSION DIAGNOSES: 1. Chronic obstructive pulmonary disease (COPD) exacerbation, pneumonia possibly secondary to chemical exposure, polyethylene. 2. Hypertension. 3. Psychiatric disease. 4. Allergies. 5. Anemia. 6. Chronic pain. DISCHARGE DIAGNOSES: 1. Community-acquired pneumonia with possible chronic obstructive pulmonary disease exacerbation, questionable from exposure to polyethylene; however, the patient denies. 2. Desaturation at night, possibly secondary to obstructive sleep apnea. Will need outpatient workup. 3. Leukocytosis from steroid. 4. Iron-deficiency anemia. 5. Hypertension. 6. Psychiatric disease. 7. Allergies. 8. Chronic pain. 9. History of obesity, status post gastric bypass. CONSULTANTS: None. PROCEDURES: Imaging: The patient had a portable chest x-ray initially shows a left lower lobe atelectasis versus scar, and a CT angiogram of the chest was ordered, shows infiltrate with small effusion at the left lower lobe posterior in the deep sulcus. Some scarring peripherally to the left lower lobe. No other significant findings. 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 Denies any chronic obstructive pulmonary disease, asthma diagnosed, but utilized home inhaler and used to be a smoker. He presents complaining with shortness of breath. The patient complained he had shortness of breath that started last night. In addition, yellow sputum came up suddenly. 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 He was exposed to polyethylene smell due to his profession, which was new for him. However, patient stated it was water soluble and it was safe. The patient, however, does not wear a mask. Admission physician strongly advised to use a mask while being exposed to any chemicals at work in the future. The patient stated that he also developed left lower quadrant abdominal pain and that seems to be positional. He improved while sitting upright and worse while lying down. He did have pain in the past two days that seems to be progressively worsened and subsequently developed his cough and shortness of breath. The patient denies any fever or chills. The patient also pointed to his chest complaining of the pain. Denies any musculoskeletal problems have been contributing to this, although he is on chronic pain medications and in addition , muscle relaxants. Due to this progression, patient evaluated at the emergency room. As the patient had shortness of breath, was given nebulizer, which helped him improve the shortness of breath as well. At the lowest point, the patient's oxygen was 88% on room air, improved to 92% on nebulizer. Per emergency room physician, the patient had severe wheezing; however, on examination by admitting physician, the patient's wheezing was improved. The patient as evaluated with CT angiography (CTA) of the chest and showed no pulmonary embolism (PE). However, there were small effusions at the left lower lobe. In addition, some scarring peripherally at the left lower lobe. The patient is being admitted for further evaluation, most likely COPD exacerbation with pneumonia, and also fatigue. HOSPITAL COURSE: The patient was placed on Solu-Medrol initially for COPD exacerbation, and he was started on antibiotic Rocephin and azithromycin, and over the next few days, the patient's symptoms improved. On 06/11/2017, the patient was stable and would like to go home, and his lungs sounded clear, no wheezing. DISPOSITION: Discharge to home with oxygen at night. CONDITION ON DISCHARGE: Stable. DISCHARGE MEDICATIONS: New medications including: - azithromycin 500 mg by mouth daily for five more days - Cefdinir 300 mg by mouth every 12 hours for five more days - prednisone taper 40 mg by mouth daily for two more days, 20 mg by mouth daily for two days after that, and 10 mg by mouth daily for two more days If the patient's shortness of breath does not resolve, the patient may contact the primary care provider and receive evaluation for possibly more steroids Continue home medications including: - Ellipta 62.5/25 mcg one puff inhalation daily as needed - cetirizine 10 mg by mouth at bedtime - Depakote 500 mg by mouth at bedtime - vitamin D 50,000 units one tablet by mouth weekly - ferrous sulfate 325 mg one tablet by mouth three times a day - fluoxetine 20 mg by mouth at bedtime - gabapentin 800 mg one tablet by mouth three times a day - lisinopril 20 mg by mouth at bedtime - montelukast 10 mg by mouth at bedtime - oxycodone 5 mg by mouth every six hours as needed - ropinirole 3 mg by mouth twice a day - Zanaflex 4 mg tablet by mouth three times a day as needed for muscle spasm - trazodone 100 mg by mouth at bedtime FOLLOWUP: The patient should followup with primary care provider as soon as possible. The patient likely should be considered for a formal sleep study for obstructive sleep apnea. In addition, the patient does have an incomplete right bundle branch block which may need further outpatient evaluation as well. ADDITIONAL INSTRUCTIONS: If the patient develops additional shortness of breath, any chest pain that is not resolved with inhaler, the patient should contact primary care provider or go to the emergency room. The patient has been discussed with attending, Dr. Gonzalez. My preceptor for this patient encounter was Dr. Gonzalez. The preceptor was physically present in the building during the encounter and was fully available as needed. All aspects of the patient interview, examination, medical decision making process, and medical care plan development were reviewed and approved by the preceptor. The preceptor is aware and concurs with the plan as stated in the body of this note and will attest to such by his/her co-signature. I, Rajesh Gonzalez, have both independently examined this patient as well as reviewed the documentation. I have discussed in detail with the resident the findings and plan of treatment as documented in the residents documentation. I will continue to follow the patient and offer further guidance to the patients care as necessary during this hospital stay. BEKAH
[2017-06-13 10:53] LABS: VITAMIN B12 LEVEL 221 PG/ML (247-911)
[2017-06-13 10:54] LABS: FOLATE 4.3 NG/ML (>5.4)
== END 2017-06-11 12:50 | disposition home or self-care (01) | DRG 140 ==
LOC: M ED 11:36 → M ED INP 15:44 → M MS5PR 18:10 → OBSVTOIN 06-10 11:07
PROVIDERS: ADMIT Internal Medicine; ATTEND Internal Medicine
DX: J44.0 Chronic obstructive pulmonary disease with (acute) lower respiratory infection (principal); J18.9 Pneumonia, unspecified organism; I10 Essential (primary) hypertension; F39 Unspecified mood [affective] disorder; D50.9 Iron deficiency anemia, unspecified; J44.1 Chronic obstructive pulmonary disease with (acute) exacerbation; G89.29 Other chronic pain; G47.33 Obstructive sleep apnea (adult) (pediatric); J30.9 Allergic rhinitis, unspecified; Z87.891 Personal history of nicotine dependence; Z98.84 Bariatric surgery status; Z79.891 Long term (current) use of opiate analgesic; Z79.899 Other long term (current) drug therapy; Z77.098 Contact with and (suspected) exposure to other hazardous, chiefly nonmedicinal, chemicals

== ENCOUNTER → 2023-03-11 | Outpatient (REF) | payer BC, OTHER ==
[~2023-03-11] MED LIST changes: -/ESCI20TA; +ALBU8.5H INH; +ANOR1AER INH; +ANORO; +AZIT500T5 PO; +CEFD300C41 PO; +CEFD300CAP PO; +CETI10TA PO; +DIVA500T94 PO; +FERR1TAB8 PO; +FLUO20CA22 PO; +FLUT1BLS8 INH; +GABA800T4 PO; +HYDR-4517 PO; +LEXA1TAB2; +LISI20TA33 PO; +MONT10TA97 PO; +OXYC-517 PO; +PRED10PA PO; +PRED10TA2 PO; +PRIM50TA6 PO; +ROPI0.5T3 PO; +ROPI3TAB3 PO; +TIZA10TA PO; +TIZANIDINE; +TRAZ-257 PO; +VITA50005 PO; +ZANA4TAB PO
== END ==
LOC: M LAB REF 13:04
PROVIDERS: ATTEND Internal Medicine Pulmonary Disease
DX: J43.9 Emphysema, unspecified (principal)

== ENCOUNTER 2023-03-21 19:24 | Inpatient (IN) | payer BC ==
[~2023-03-21] VITALS: Ht 175.3 cm; Wt 85.9 kg
[~2023-03-21 19:24] MED LIST changes: -ALBU8.5H INH; -CEFD300CAP PO; -FLUT1BLS8 INH; -HYDR-4517 PO; -PRED10TA2 PO; -PRIM50TA6 PO; -ROPI0.5T3 PO; -TIZA10TA PO
[2023-03-21] MEDS: IPRATROPIUM 0.5MG/ALBUTEROL 2.5MG INH SOL UD 3ML (DUONEB) NEB PRN ×3 (19:50→21:29)
[2023-03-21 20:21] LABS: ABG BASE EXCESS -0.9 (-2.0-2.0); ABG HCO3 24.2 MMOL/L (22.0-26.0); ABG O2 SATURATION 98.8 % (95.0-99.0); ABG PARTIAL PRESSURE CO2 41.5 mmHg (35.0-45.0); ABG STANDARD HCO3 23.8 MMOL/L. (22.0-26.0); ABG TOTAL CO2 25.4 MMOL/L (22.0-29.0); ABG pH (ARTERIAL) 7.383 UNITS (7.350-7.450)
[2023-03-21] MEDS: methylPREDNISolone 125MG 2ML VIAL IV ONE ×2 (20:22→20:33)
[2023-03-21 20:32] LABS: BASO % 0.1 % (0.0-1.0); HEMATOCRIT 45.9 % (42.0-52.0); HEMOGLOBIN 14.9 g/dl (13.5-17.5); LYMPH # 0.5 10^3/uL (1.5-5.0); LYMPH % 3.2 % (24.0-44.0); MEAN CORPUSCULAR HGB CONC 32.5 g/dl (32.0-36.5); MEAN CORPUSCULAR VOLUME 86.1 fl (80.0-96.0); MONO # 0.2 10^3/uL (0.0-0.8); MONO % 1.4 % (2.0-8.0); NEUTROPHILS # 13.8 10^3/uL (1.5-8.5); NEUTROPHILS % 94.9 % (36.0-66.0); PLATELET COUNT, AUTOMATED 259 10^3/uL (150-450); RED BLOOD COUNT 5.33 10^6/uL (4.30-6.10); WHITE BLOOD COUNT 14.6 10^3/uL (4.0-10.0)
[2023-03-21 20:48] LABS: PROTHROMBIN TIME 13.4 SECONDS (12.5-14.5)
[2023-03-21 21:04] LABS: CK-MB VALUE MASS 1.6 NG/ML (<3.6)
[2023-03-21 21:06] LABS: ALBUMIN 3.5 G/DL (3.2-5.2); ALKALINE PHOSPHATASE 114 U/L (46-116); ALT/SGPT 17 U/L (7.0-40); AST/SGOT 17 U/L (<34); BILIRUBIN,DIRECT 0.1 MG/DL (<0.4); BILIRUBIN,TOTAL 0.3 MG/DL (0.3-1.2); BLOOD UREA NITROGEN 8 MG/DL (9-23); CALCIUM LEVEL 9.3 MG/DL (8.5-10.1); CARBON DIOXIDE LEVEL 26 MMOL/L (20-31); CHLORIDE LEVEL 101 MMOL/L (98-107); CPK CREATINE PHOSPHOKINASE 109 U/L (46-171); CREATININE FOR GFR 0.76 MG/DL (0.70-1.30); GLOMERULAR FILTRATION RATE > 60.0 (>56); GLUCOSE, FASTING 148 MG/DL (60-100); MB/CK RELATIVE INDEX 1.46 (< OR =4); SODIUM LEVEL 137 MMOL/L (136-145); TOTAL PROTEIN 7.3 G/DL (5.7-8.2)
[2023-03-21] MEDS ORDERED: ISOVUE-370 76% 100ML VIAL As Ordered ONE (21:21)
[2023-03-22] MEDS ORDERED: MOM 30ML SUSPENSION UDC PO PRN (00:20)
[2023-03-22] MEDS ORDERED: ACETAMINOPHEN TAB 650MG DOSE (2X325MG) PO PRN (00:20)
[2023-03-22] MEDS ORDERED: ALBUTEROL SULFATE 2.5MG/0.5ML INH NEB SOLN NEB PRN (00:20)
[2023-03-22] MEDS: IPRATROPIUM 0.5MG/ALBUTEROL 2.5MG INH SOL UD 3ML (DUONEB) NEB SCH ×4 (01:41→18:54)
[2023-03-22] MEDS ORDERED: TIZA10TA PO (03:29)
[2023-03-22] MEDS ORDERED: ROPI0.5T3 PO (03:29)
[2023-03-22] MEDS ORDERED: FLUT1BLS8 INH (03:29)
[2023-03-22] MEDS ORDERED: CEFD300CAP PO (03:29)
[2023-03-22] MEDS ORDERED: PRED10TA2 PO (03:33)
[2023-03-22] MEDS ORDERED: ALBU8.5H INH (03:33)
[2023-03-22] MEDS ORDERED: PRIM50TA6 PO (03:33)
[2023-03-22] MEDS ORDERED: HOME MED LIST COMPLETE! XX SCH (03:35)
[2023-03-22] MEDS ORDERED: LevoFLOXacin 750 MG TABLET PO SCH (06:00)
[2023-03-22] MEDS: methylPREDNISolone 125MG 2ML VIAL IV SCH ×3 (06:12→20:30)
[2023-03-22] MEDS: LevoFLOXacin 750 MG TABLET PO SCH (06:13)
[2023-03-22] MEDS: ADVAIR HFA 115/21MCG INHALER INH SCH ×2 (08:00→18:54)
[2023-03-22 08:22] LABS: HEMATOCRIT 44.5 % (42.0-52.0); HEMOGLOBIN 14.6 g/dl (13.5-17.5); MEAN CORPUSCULAR HEMOGLOBIN 28.7 pg (27.0-33.0); MEAN CORPUSCULAR HGB CONC 32.8 g/dl (32.0-36.5); MEAN CORPUSCULAR VOLUME 87.6 fl (80.0-96.0); PLATELET COUNT, AUTOMATED 256 10^3/uL (150-450); RED BLOOD COUNT 5.08 10^6/uL (4.30-6.10); WHITE BLOOD COUNT 10.1 10^3/uL (4.0-10.0)
[2023-03-22] MEDS: GABAPENTIN 400MG CAP PO SCH ×3 (08:49→20:31)
[2023-03-22] MEDS: ENOXAPARIN 40MG/0.4ML SYRINGE (J1650 PER 10MG) SC SCH (08:49)
[2023-03-22] MEDS: tiZANidine 4 MG TAB PO SCH ×3 (08:50→20:32)
[2023-03-22] MEDS: PRIMIDONE 50MG TAB PO SCH ×2 (10:12→20:31)
[2023-03-22] MEDS: NICOTINE 21MG/24HR 1 EA TRANSDERMAL TD SCH (13:15)
[2023-03-22 15:41] VITALS: BP 150/85
[2023-03-22 18:00] VITALS: BP 145/91
[2023-03-22] MEDS ORDERED: HYDR-4517 PO (19:55)
[2023-03-22 20:00] VITALS: BP 148/94
[2023-03-22] MEDS: LIDOCAINE 5% (LIDODERM) PATCH TD SCH (20:31)
[2023-03-22] MEDS: rOPINIRole 0.25 MG TAB(REQUIP) PO SCH (20:31)
[2023-03-22] MEDS: methocarbamoL 750 MG TAB PO PRN (20:33)
[2023-03-22] MEDS: PERCOCET 5MG/325MG TAB PO PRN (20:33)
[2023-03-22 22:00] VITALS: BP 148/94
[2023-03-23] MEDS: IPRATROPIUM 0.5MG/ALBUTEROL 2.5MG INH SOL UD 3ML (DUONEB) NEB SCH ×5 (01:10→20:20)
[2023-03-23 02:00] VITALS: BP 131/84
[2023-03-23] MEDS: PERCOCET 5MG/325MG TAB PO PRN ×4 (02:28→21:19)
[2023-03-23 06:00] VITALS: BP 129/82
[2023-03-23 06:08] LABS: HEMOGLOBIN 13.7 g/dl (13.5-17.5); MEAN CORPUSCULAR HEMOGLOBIN 28.9 pg (27.0-33.0); MEAN CORPUSCULAR HGB CONC 32.6 g/dl (32.0-36.5); MEAN CORPUSCULAR VOLUME 88.6 fl (80.0-96.0); PLATELET COUNT, AUTOMATED 246 10^3/uL (150-450); RED BLOOD COUNT 4.74 10^6/uL (4.30-6.10); WHITE BLOOD COUNT 22.3 10^3/uL (4.0-10.0)
[2023-03-23] MEDS: tiZANidine 4 MG TAB PO SCH ×3 (06:09→21:20)
[2023-03-23] MEDS: LevoFLOXacin 750 MG TABLET PO SCH (06:09)
[2023-03-23] MEDS: methylPREDNISolone 125MG 2ML VIAL IV SCH ×3 (06:09→21:16)
[2023-03-23 06:46] LABS: BLOOD UREA NITROGEN 15 MG/DL (9-23); CALCIUM LEVEL 9.1 MG/DL (8.5-10.1); CARBON DIOXIDE LEVEL 29 MMOL/L (20-31); CHLORIDE LEVEL 102 MMOL/L (98-107); CREATININE FOR GFR 0.75 MG/DL (0.70-1.30); GLOMERULAR FILTRATION RATE > 60.0 (>56); GLUCOSE, FASTING 140 MG/DL (60-100); POTASSIUM SERUM 4.4 MMOL/L (3.5-5.1); SODIUM LEVEL 138 MMOL/L (136-145)
[2023-03-23] MEDS: PRIMIDONE 50MG TAB PO SCH (08:29)
[2023-03-23] MEDS: GABAPENTIN 400MG CAP PO SCH ×3 (08:30→21:20)
[2023-03-23] MEDS: ENOXAPARIN 40MG/0.4ML SYRINGE (J1650 PER 10MG) SC SCH (08:30)
[2023-03-23] MEDS: NICOTINE 21MG/24HR 1 EA TRANSDERMAL TD SCH (08:30)
[2023-03-23] MEDS ORDERED: IPRATROPIUM 0.5MG/ALBUTEROL 2.5MG INH SOL UD 3ML (DUONEB) NEB PRN (09:00)
[2023-03-23] MEDS: ADVAIR HFA 115/21MCG INHALER INH SCH ×2 (09:16→20:34)
[2023-03-23 10:00] VITALS: BP 122/78
[2023-03-23 14:00] VITALS: BP 119/76
[2023-03-23 18:00] VITALS: BP 131/77
[2023-03-23] MEDS: LIDOCAINE 5% (LIDODERM) PATCH TD SCH (21:16)
[2023-03-23] MEDS: rOPINIRole 0.25 MG TAB(REQUIP) PO SCH (21:18)
[2023-03-23 21:32] VITALS: BP 136/80
[2023-03-24] MEDS: IPRATROPIUM 0.5MG/ALBUTEROL 2.5MG INH SOL UD 3ML (DUONEB) NEB SCH ×6 (00:29→20:40)
[2023-03-24] MEDS: PERCOCET 5MG/325MG TAB PO PRN ×4 (03:23→21:17)
[2023-03-24] MEDS: tiZANidine 4 MG TAB PO SCH ×3 (05:31→21:18)
[2023-03-24] MEDS: LevoFLOXacin 750 MG TABLET PO SCH (05:31)
[2023-03-24] MEDS: methylPREDNISolone 125MG 2ML VIAL IV SCH ×3 (05:32→21:15)
[2023-03-24 05:34] VITALS: BP_DIAS 132
[2023-03-24 06:24] LABS: HEMATOCRIT 40.1 % (42.0-52.0); HEMOGLOBIN 12.9 g/dl (13.5-17.5); MEAN CORPUSCULAR HEMOGLOBIN 28.9 pg (27.0-33.0); MEAN CORPUSCULAR HGB CONC 32.2 g/dl (32.0-36.5); MEAN CORPUSCULAR VOLUME 89.7 fl (80.0-96.0); PLATELET COUNT, AUTOMATED 248 10^3/uL (150-450); RED BLOOD COUNT 4.47 10^6/uL (4.30-6.10); WHITE BLOOD COUNT 19.7 10^3/uL (4.0-10.0)
[2023-03-24 06:50] LABS: BLOOD UREA NITROGEN 18 MG/DL (9-23); CALCIUM LEVEL 9.3 MG/DL (8.5-10.1); CARBON DIOXIDE LEVEL 29 MMOL/L (20-31); CHLORIDE LEVEL 100 MMOL/L (98-107); CREATININE FOR GFR 0.75 MG/DL (0.70-1.30); GLOMERULAR FILTRATION RATE > 60.0 (>56); GLUCOSE, FASTING 149 MG/DL (60-100); POTASSIUM SERUM 4.5 MMOL/L (3.5-5.1); SODIUM LEVEL 135 MMOL/L (136-145)
[2023-03-24] MEDS: ADVAIR HFA 115/21MCG INHALER INH SCH ×2 (07:47→20:40)
[2023-03-24] MEDS: ENOXAPARIN 40MG/0.4ML SYRINGE (J1650 PER 10MG) SC SCH (08:44)
[2023-03-24] MEDS: NICOTINE 21MG/24HR 1 EA TRANSDERMAL TD SCH (08:44)
[2023-03-24] MEDS: GABAPENTIN 400MG CAP PO SCH ×3 (08:45→21:19)
[2023-03-24] MEDS: methocarbamoL 750 MG TAB PO PRN ×2 (09:37→15:32)
[2023-03-24 10:00] VITALS: BP 147/88
[2023-03-24 14:00] VITALS: BP 142/90
[2023-03-24 20:03] VITALS: BP 140/91
[2023-03-24] MEDS: rOPINIRole 0.25 MG TAB(REQUIP) PO SCH (21:17)
[2023-03-24] MEDS: LIDOCAINE 5% (LIDODERM) PATCH TD SCH (21:19)
[2023-03-25] MEDS: IPRATROPIUM 0.5MG/ALBUTEROL 2.5MG INH SOL UD 3ML (DUONEB) NEB SCH ×6 (00:03→23:37)
[2023-03-25] MEDS: methocarbamoL 750 MG TAB PO PRN ×4 (01:51→21:40)
[2023-03-25] MEDS: PERCOCET 5MG/325MG TAB PO PRN ×4 (04:00→21:40)
[2023-03-25] MEDS: methylPREDNISolone 125MG 2ML VIAL IV SCH ×3 (05:54→20:27)
[2023-03-25] MEDS: LevoFLOXacin 750 MG TABLET PO SCH (05:54)
[2023-03-25] MEDS: tiZANidine 4 MG TAB PO SCH ×3 (05:54→21:39)
[2023-03-25 06:33] VITALS: BP 114/84
[2023-03-25 06:34] LABS: HEMATOCRIT 41.2 % (42.0-52.0); HEMOGLOBIN 13.1 g/dl (13.5-17.5); MEAN CORPUSCULAR HEMOGLOBIN 28.5 pg (27.0-33.0); MEAN CORPUSCULAR HGB CONC 31.8 g/dl (32.0-36.5); MEAN CORPUSCULAR VOLUME 89.6 fl (80.0-96.0); PLATELET COUNT, AUTOMATED 260 10^3/uL (150-450); WHITE BLOOD COUNT 15.5 10^3/uL (4.0-10.0)
[2023-03-25 07:05] LABS: BLOOD UREA NITROGEN 14 MG/DL (9-23); CALCIUM LEVEL 9.3 MG/DL (8.5-10.1); CARBON DIOXIDE LEVEL 32 MMOL/L (20-31); CHLORIDE LEVEL 99 MMOL/L (98-107); CREATININE FOR GFR 0.64 MG/DL (0.70-1.30); GLOMERULAR FILTRATION RATE > 60.0 (>56); GLUCOSE, FASTING 157 MG/DL (60-100); POTASSIUM SERUM 4.3 MMOL/L (3.5-5.1); SODIUM LEVEL 136 MMOL/L (136-145)
[2023-03-25] MEDS: ADVAIR HFA 115/21MCG INHALER INH SCH ×2 (07:15→20:40)
[2023-03-25] MEDS: NICOTINE 21MG/24HR 1 EA TRANSDERMAL TD SCH (08:19)
[2023-03-25] MEDS: GABAPENTIN 400MG CAP PO SCH ×3 (08:19→20:26)
[2023-03-25] MEDS: ENOXAPARIN 40MG/0.4ML SYRINGE (J1650 PER 10MG) SC SCH (08:19)
[2023-03-25 14:00] VITALS: BP 121/85
[2023-03-25 20:00] VITALS: BP 125/87
[2023-03-25] MEDS: rOPINIRole 0.25 MG TAB(REQUIP) PO SCH (20:25)
[2023-03-25] MEDS: LIDOCAINE 5% (LIDODERM) PATCH TD SCH (21:00)
[2023-03-26] MEDS: IPRATROPIUM 0.5MG/ALBUTEROL 2.5MG INH SOL UD 3ML (DUONEB) NEB SCH ×6 (03:16→23:20)
[2023-03-26] MEDS: methocarbamoL 750 MG TAB PO PRN ×2 (03:41→21:02)
[2023-03-26] MEDS: PERCOCET 5MG/325MG TAB PO PRN ×4 (03:42→23:42)
[2023-03-26] MEDS: methylPREDNISolone 125MG 2ML VIAL IV SCH ×2 (04:59→16:29)
[2023-03-26] MEDS: tiZANidine 4 MG TAB PO SCH ×3 (05:00→21:01)
[2023-03-26] MEDS: LevoFLOXacin 750 MG TABLET PO SCH (05:00)
[2023-03-26 05:52] LABS: HEMATOCRIT 40.5 % (42.0-52.0); HEMOGLOBIN 13.1 g/dl (13.5-17.5); MEAN CORPUSCULAR HEMOGLOBIN 28.5 pg (27.0-33.0); MEAN CORPUSCULAR HGB CONC 32.3 g/dl (32.0-36.5); PLATELET COUNT, AUTOMATED 242 10^3/uL (150-450); WHITE BLOOD COUNT 14.4 10^3/uL (4.0-10.0)
[2023-03-26 06:00] VITALS: BP 127/87
[2023-03-26 06:14] LABS: BLOOD UREA NITROGEN 16 MG/DL (9-23); CARBON DIOXIDE LEVEL 30 MMOL/L (20-31); CHLORIDE LEVEL 102 MMOL/L (98-107); CREATININE FOR GFR 0.68 MG/DL (0.70-1.30); GLOMERULAR FILTRATION RATE > 60.0 (>56); GLUCOSE, FASTING 119 MG/DL (60-100); POTASSIUM SERUM 4.1 MMOL/L (3.5-5.1); SODIUM LEVEL 136 MMOL/L (136-145)
[2023-03-26] MEDS: ADVAIR HFA 115/21MCG INHALER INH SCH ×2 (07:18→19:13)
[2023-03-26] MEDS: NICOTINE 21MG/24HR 1 EA TRANSDERMAL TD SCH (08:47)
[2023-03-26] MEDS: GABAPENTIN 400MG CAP PO SCH ×3 (08:47→21:01)
[2023-03-26] MEDS: ENOXAPARIN 40MG/0.4ML SYRINGE (J1650 PER 10MG) SC SCH (08:47)
[2023-03-26 14:01] VITALS: BP 158/89
[2023-03-26 14:05] VITALS: BP 129/83
[2023-03-26] MEDS: LIDOCAINE 5% (LIDODERM) PATCH TD SCH (21:01)
[2023-03-26] MEDS: rOPINIRole 0.25 MG TAB(REQUIP) PO SCH (21:02)
[2023-03-27] MEDS: IPRATROPIUM 0.5MG/ALBUTEROL 2.5MG INH SOL UD 3ML (DUONEB) NEB SCH ×6 (03:06→23:31)
[2023-03-27 04:27] LABS: HEMATOCRIT 41.1 % (42.0-52.0); HEMOGLOBIN 13.1 g/dl (13.5-17.5); MEAN CORPUSCULAR HEMOGLOBIN 28.2 pg (27.0-33.0); MEAN CORPUSCULAR HGB CONC 31.9 g/dl (32.0-36.5); MEAN CORPUSCULAR VOLUME 88.4 fl (80.0-96.0); PLATELET COUNT, AUTOMATED 267 10^3/uL (150-450); RED BLOOD COUNT 4.65 10^6/uL (4.30-6.10)
[2023-03-27 04:50] LABS: BLOOD UREA NITROGEN 24 MG/DL (9-23); CALCIUM LEVEL 8.1 MG/DL (8.5-10.1); CARBON DIOXIDE LEVEL 30 MMOL/L (20-31); CHLORIDE LEVEL 102 MMOL/L (98-107); CREATININE FOR GFR 0.73 MG/DL (0.70-1.30); GLOMERULAR FILTRATION RATE > 60.0 (>56); GLUCOSE, FASTING 134 MG/DL (60-100); POTASSIUM SERUM 4.1 MMOL/L (3.5-5.1); SODIUM LEVEL 137 MMOL/L (136-145)
[2023-03-27] MEDS: methylPREDNISolone 125MG 2ML VIAL IV SCH ×2 (05:10→17:35)
[2023-03-27] MEDS: tiZANidine 4 MG TAB PO SCH ×3 (05:11→23:34)
[2023-03-27] MEDS: LevoFLOXacin 750 MG TABLET PO SCH (05:11)
[2023-03-27] MEDS: methocarbamoL 750 MG TAB PO PRN ×2 (05:11→19:13)
[2023-03-27 06:00] VITALS: BP 105/63
[2023-03-27] MEDS: PERCOCET 5MG/325MG TAB PO PRN ×3 (07:15→19:49)
[2023-03-27] MEDS: ADVAIR HFA 115/21MCG INHALER INH SCH ×2 (08:44→20:16)
[2023-03-27] MEDS: NICOTINE 21MG/24HR 1 EA TRANSDERMAL TD SCH (09:38)
[2023-03-27] MEDS: GABAPENTIN 400MG CAP PO SCH ×3 (09:38→19:48)
[2023-03-27] MEDS: ENOXAPARIN 40MG/0.4ML SYRINGE (J1650 PER 10MG) SC SCH (09:38)
[2023-03-27 14:00] VITALS: BP 106/64
[2023-03-27 16:14] VITALS: O2SAT 96
[2023-03-27] MEDS: LIDOCAINE 5% (LIDODERM) PATCH TD SCH (19:48)
[2023-03-27] MEDS: rOPINIRole 0.25 MG TAB(REQUIP) PO SCH (19:49)
[2023-03-27 19:52] VITALS: BP 135/82
[2023-03-28] MEDS: IPRATROPIUM 0.5MG/ALBUTEROL 2.5MG INH SOL UD 3ML (DUONEB) NEB SCH ×2 (02:53→07:09)
[2023-03-28] MEDS: PERCOCET 5MG/325MG TAB PO PRN ×2 (03:02→09:04)
[2023-03-28 05:16] VITALS: BP 154/90
[2023-03-28] MEDS: tiZANidine 4 MG TAB PO SCH (05:41)
[2023-03-28] MEDS: LevoFLOXacin 750 MG TABLET PO SCH (05:41)
[2023-03-28 06:07] LABS: HEMATOCRIT 42.2 % (42.0-52.0); HEMOGLOBIN 13.8 g/dl (13.5-17.5); MEAN CORPUSCULAR HEMOGLOBIN 28.4 pg (27.0-33.0); MEAN CORPUSCULAR HGB CONC 32.7 g/dl (32.0-36.5); MEAN CORPUSCULAR VOLUME 86.8 fl (80.0-96.0); PLATELET COUNT, AUTOMATED 276 10^3/uL (150-450); RED BLOOD COUNT 4.86 10^6/uL (4.30-6.10); WHITE BLOOD COUNT 14.3 10^3/uL (4.0-10.0)
[2023-03-28 06:44] LABS: BLOOD UREA NITROGEN 20 MG/DL (9-23); CALCIUM LEVEL 9.2 MG/DL (8.5-10.1); CARBON DIOXIDE LEVEL 29 MMOL/L (20-31); CHLORIDE LEVEL 102 MMOL/L (98-107); CREATININE FOR GFR 0.61 MG/DL (0.70-1.30); GLOMERULAR FILTRATION RATE > 60.0 (>56); GLUCOSE, FASTING 129 MG/DL (60-100); POTASSIUM SERUM 4.2 MMOL/L (3.5-5.1); SODIUM LEVEL 138 MMOL/L (136-145)
[2023-03-28] MEDS: ADVAIR HFA 115/21MCG INHALER INH SCH (07:09)
[2023-03-28] MEDS ORDERED: IPRA0.00 NEB (07:16)
[2023-03-28] MEDS ORDERED: PRED10TA2 PO (07:16)
[2023-03-28] MEDS ORDERED: PERCOCET PO (07:16)
[2023-03-28] MEDS ORDERED: ALBU2.5V10 NEB (07:16)
[2023-03-28] MEDS: ENOXAPARIN 40MG/0.4ML SYRINGE (J1650 PER 10MG) SC SCH (08:55)
[2023-03-28] MEDS: LIDOCAINE 5% (LIDODERM) PATCH TD SCH ×2 (08:56→09:05)
[2023-03-28] MEDS ORDERED: predniSONE 20 MG TAB PO SCH (09:00)
[2023-03-28] MEDS: methocarbamoL 750 MG TAB PO PRN (09:03)
[2023-03-28] MEDS: GABAPENTIN 400MG CAP PO SCH (09:04)
[2023-03-28] MEDS: NICOTINE 21MG/24HR 1 EA TRANSDERMAL TD SCH (09:04)
== END 2023-03-28 11:08 | disposition home or self-care (01) | DRG 133 ==
LOC: M ED 19:24 → M ED INP 03-22 00:16 → M MSPAV 03-22 15:00
PROVIDERS: ADMIT Internal Medicine; ATTEND Internal Medicine Nephrology
DX: J96.21 Acute and chronic respiratory failure with hypoxia (principal); J18.9 Pneumonia, unspecified organism; Z99.81 Dependence on supplemental oxygen; J44.0 Chronic obstructive pulmonary disease with (acute) lower respiratory infection; J44.1 Chronic obstructive pulmonary disease with (acute) exacerbation; J20.9 Acute bronchitis, unspecified; R25.1 Tremor, unspecified; R91.8 Other nonspecific abnormal finding of lung field; I10 Essential (primary) hypertension; M54.50 Low back pain, unspecified; F39 Unspecified mood [affective] disorder; B34.8 Other viral infections of unspecified site; D64.9 Anemia, unspecified; G89.29 Other chronic pain; Z87.891 Personal history of nicotine dependence; Z79.899 Other long term (current) drug therapy; Z20.822 Contact with and (suspected) exposure to COVID-19; Z98.84 Bariatric surgery status; Z90.49 Acquired absence of other specified parts of digestive tract

== ENCOUNTER → 2023-06-07 | Outpatient (REF) ==
[~2023-06-07] MED LIST changes: +ALBU2.5V10 NEB; +ALBU8.5H INH; +CEFD300CAP PO; +FLUT1BLS8 INH; +HYDR-4517 PO; +IPRA0.00 NEB; +PERCOCET PO; +PRED10TA2 PO; +PRIM50TA6 PO; +ROPI0.5T33 PO; +ROPI3TAB18 PO; -ROPI3TAB3 PO; +TIZA10TA PO
== END ==
LOC: M RAD 09:15
PROVIDERS: ATTEND Internal Medicine
DX: M43.16 Spondylolisthesis, lumbar region (principal); M43.18 Spondylolisthesis, sacral and sacrococcygeal region; M54.50 Low back pain, unspecified

== ENCOUNTER 2023-06-29 17:38 | Inpatient (IN) | payer BC ==
[~2023-06-29] VITALS: Ht 170.2 cm; Wt 83.4 kg
[2023-06-29] MEDS ORDERED: PANTOPRAZOLE 40MG VIAL IV ONE (18:05)
[2023-06-29 18:24] LABS: HEMATOCRIT 33.9 % (42.0-52.0); MEAN CORPUSCULAR HEMOGLOBIN 29.5 pg (27.0-33.0); MEAN CORPUSCULAR HGB CONC 32.4 g/dl (32.0-36.5); MEAN CORPUSCULAR VOLUME 90.9 fl (80.0-96.0); PLATELET COUNT, AUTOMATED 319 10^3/uL (150-450); RED BLOOD COUNT 3.73 10^6/uL (4.30-6.10); WHITE BLOOD COUNT 9.4 10^3/uL (4.0-10.0)
[2023-06-29] MEDS ORDERED: ISOVUE-370 76% 100ML VIAL As Ordered ONE (18:25)
[2023-06-29 18:36] LABS: INR 1.08; PROTHROMBIN TIME 13.7 SECONDS (12.5-14.5)
[2023-06-29 18:37] LABS: PARTIAL THROMBOPLASTIN TIME 36.7 SECONDS (24.8-34.2)
[2023-06-29 18:48] LABS: ETHYL ALCOHOL (ETHANOL) < 0.003 % (0.000-0.010); LIPASE 56 U/L (12-53)
[2023-06-29 18:50] LABS: ALBUMIN 2.3 G/DL (3.2-5.2); ALKALINE PHOSPHATASE 69 U/L (46-116); ALT/SGPT 25 U/L (7.0-40); AST/SGOT 21 U/L (<34); BILIRUBIN,DIRECT 0.2 MG/DL (<0.4); BILIRUBIN,TOTAL 0.4 MG/DL (0.3-1.2); TOTAL PROTEIN 5.4 G/DL (5.7-8.2)
[2023-06-29 19:00] LABS: RSV AMPLIFICATION NEGATIVE (NEGATIVE)
[2023-06-29 19:07] LABS: ATYPICAL LYMPH 6 % (0-5); EOSINOPHILS 6 % (0-3); LYMPHOCYTES 30 % (16-44); MONOCYTES 6 % (0-5); NEUTROPHILS 52 % (28-66)
[2023-06-29 19:08] LABS: PLATELET ESTIMATE NORMAL (NORMAL); TOXIC GRANULATION 1+
[2023-06-29] MEDS ORDERED: MED REC IN PROGRESS XX SCH (19:20)
[2023-06-29] MEDS ORDERED: FLUO20CA22 PO (19:37)
[2023-06-29] MEDS ORDERED: EZET10TA21 PO (19:37)
[2023-06-29] MEDS ORDERED: ROPI2TAB46 PO (19:37)
[2023-06-29] MEDS ORDERED: HOME MED LIST COMPLETE! XX SCH (19:40)
[2023-06-29] MEDS ORDERED: PIPERACILLIN/TAZOBACTAM SOD 3.375 GM in D5W MINI-BAG PLUS 50 ML IV ONE (20:00)
[2023-06-29] MEDS ORDERED: MORPHINE 4 MG/ML 1ML VIAL IV ONE (20:10)
[2023-06-29] MEDS ORDERED: LIDOCAINE 2% 100MG/5ML SDV (FOR ANES.) As Ordered ONE (21:56)
[2023-06-29] MEDS ORDERED: propofoL 200 MG/20 ML VIAL As Ordered ONE (21:56)
[2023-06-29] MEDS ORDERED: ROCURONIUM BROMIDE 50MG/5ML VIAL As Ordered ONE (21:56)
[2023-06-29] MEDS ORDERED: MIDAZOLAM INJ 2MG/2ML VIAL As Ordered ONE (21:57)
[2023-06-29] MEDS ORDERED: fentaNYL 250 MCG/5 ML INJECTION As Ordered ONE (21:57)
[2023-06-29] MEDS ORDERED: LIDOCAINE 1% SDV 30ML VIAL As Ordered ONE (22:45)
[2023-06-29] MEDS ORDERED: LIDOCAINE 1% SDV 30ML VIAL ONE (22:45)
[2023-06-30] VITALS (28 sets, daily range): BP systolic 90–149; BP diastolic 48–94; TEMP 97.2–98.6; O2SAT 90–99
[2023-06-30] MEDS ORDERED: SUGAMMADEX SODIUM 500 MG/5 ML VIAL (BRIDION) As Ordered ONE (00:04)
[2023-06-30] MEDS ORDERED: ROCURONIUM BROMIDE 50MG/5ML VIAL As Ordered ONE ×2 (00:04→02:33)
[2023-06-30] MEDS ORDERED: PHENYLephrine 500MCG 5ML (100MCG/ML) SYRINGE As Ordered ONE ×2 (00:04→00:34)
[2023-06-30] MEDS ORDERED: KETOROLAC 60MG 2ML VIAL As Ordered ONE (00:07)
[2023-06-30] MEDS ORDERED: ONDANSETRON 4MG 2ML VIAL As Ordered ONE (00:08)
[2023-06-30] MEDS ORDERED: HYDROmorphone HCL 2MG/ML 1ML VIAL As Ordered ONE (01:04)
[2023-06-30] MEDS ORDERED: ACETAMINOPHEN 1000MG 100ML IV BAG As Ordered ONE (02:52)
[2023-06-30] MEDS ORDERED: ALBUTEROL SULFATE 2.5MG/0.5ML INH NEB SOLN NEB PRN (03:20)
[2023-06-30] MEDS ORDERED: ALBUTEROL 90 MCG/ACT 8GM HFA INHALER INH PRN (03:20)
[2023-06-30] MEDS ORDERED: ONDANSETRON 4MG 2ML VIAL IV PRN ×3 (03:20→18:00)
[2023-06-30] MEDS ORDERED: METOCLOPRAMIDE INJ 10MG/2ML VIAL IV PRN (03:30)
[2023-06-30] MEDS ORDERED: LR 1,000 ML IV SCH (03:30)
[2023-06-30] MEDS ORDERED: HYDROMORPHONE HCL 0.5 MG/ 0.5 ML SYRINGE IV PRN (03:30)
[2023-06-30] MEDS ORDERED: fentaNYL 100 MCG/2 ML INJECTION IV PRN (03:30)
[2023-06-30] MEDS ORDERED: diphenhydrAMINE 50MG/ML VIAL IV PRN ×2 (03:30→18:00)
[2023-06-30] MEDS ORDERED: PROMETHAZINE 25MG/ML 1ML VIAL IV PRN (03:30)
[2023-06-30] MEDS ORDERED: oxyCODONE 5MG TAB PO PRN (03:30)
[2023-06-30] MEDS: PIPERACILLIN/TAZOBACTAM SOD 3.375 GM in D5W MINI-BAG PLUS 50 ML IV SCH ×4 (04:00→21:26)
[2023-06-30] MEDS: LR 1,000 ML IV SCH ×3 (04:07→19:00)
[2023-06-30] MEDS: SUCRALFATE 1 GM TAB PO SCH ×5 (04:08→21:27)
[2023-06-30] MEDS: FLUCONAZOLE 400 MG in IV 1 EA IV SCH (05:07)
[2023-06-30] MEDS: tiZANidine 4 MG TAB PO SCH ×3 (05:59→21:27)
[2023-06-30] MEDS ORDERED: MORPHINE 2 MG/ML 1ML VIAL IV ONE (06:00)
[2023-06-30 06:08] LABS: HEMATOCRIT 36.4 % (42.0-52.0); HEMOGLOBIN 11.8 g/dl (13.5-17.5); MEAN CORPUSCULAR HEMOGLOBIN 29.8 pg (27.0-33.0); MEAN CORPUSCULAR HGB CONC 32.4 g/dl (32.0-36.5); MEAN CORPUSCULAR VOLUME 91.9 fl (80.0-96.0); PLATELET COUNT, AUTOMATED 322 10^3/uL (150-450); RED BLOOD COUNT 3.96 10^6/uL (4.30-6.10); WHITE BLOOD COUNT 14.6 10^3/uL (4.0-10.0)
[2023-06-30 06:29] LABS: ALBUMIN 2.1 G/DL (3.2-5.2); ALKALINE PHOSPHATASE 65 U/L (46-116); ALT/SGPT 31 U/L (7.0-40); AST/SGOT 48 U/L (<34); BILIRUBIN,TOTAL 0.5 MG/DL (0.3-1.2); BLOOD UREA NITROGEN 17 MG/DL (9-23); CALCIUM LEVEL 7.9 MG/DL (8.5-10.1); CARBON DIOXIDE LEVEL 26 MMOL/L (20-31); CHLORIDE LEVEL 102 MMOL/L (98-107); CREATININE FOR GFR 0.96 MG/DL (0.70-1.30); GLOMERULAR FILTRATION RATE > 60.0 (>56); GLUCOSE, FASTING 106 MG/DL (60-100); POTASSIUM SERUM 4.9 MMOL/L (3.5-5.1); SODIUM LEVEL 135 MMOL/L (136-145); TOTAL PROTEIN 5.3 G/DL (5.7-8.2)
[2023-06-30 07:01] LABS: LYMPHOCYTES 10 % (16-44); METAMYELOCYTES 1 % (0-0); MONOCYTES 7 % (0-5); NEUTROPHILS 78 % (28-66); PLATELET ESTIMATE NORMAL (NORMAL)
[2023-06-30] MEDS ORDERED: PERCOCET 5MG/325MG TAB PO PRN (07:45)
[2023-06-30] MEDS: PANTOPRAZOLE 40MG VIAL IV SCH ×2 (08:01→21:21)
[2023-06-30] MEDS: GABAPENTIN 400MG CAP PO SCH ×3 (08:02→21:26)
[2023-06-30] MEDS: KETOROLAC 30 MG/ML 1ML VIAL IV SCH ×2 (08:02→15:17)
[2023-06-30] MEDS: SENOKOT S TAB PO SCH ×2 (08:03→21:26)
[2023-06-30] MEDS: PERCOCET 5MG/325MG TAB PO PRN ×2 (08:03→12:03)
[2023-06-30] MEDS ORDERED: LR 1,000 ML IV ONE (08:10)
[2023-06-30] MEDS: IPRATROPIUM 0.5MG/ALBUTEROL 2.5MG INH SOL UD 3ML (DUONEB) NEB SCH ×3 (08:17→19:26)
[2023-06-30] MEDS ORDERED: EPIDURAL/PCA KEYS XX PRN (18:00)
[2023-06-30] MEDS ORDERED: NALOXONE INJ 0.4MG/1ML VIAL IV PRN (18:00)
[2023-06-30] MEDS ORDERED: NS 1,000 ML IV SCH (18:00)
[2023-06-30] MEDS: MORPHINE 1MG/ML IN 0.9% NACL 100ML IV BAG IV PRN (18:26)
[2023-06-30] MEDS: EZETIMIBE 10MG TABLET (ZETIA) PO SCH (21:26)
[2023-06-30] MEDS: FLUoxetine 20MG CAP PO SCH (21:27)
[2023-06-30] MEDS: rOPINIRole 2MG TAB PO SCH (21:27)
[2023-07-01] VITALS (21 sets, daily range): BP systolic 95–114; BP diastolic 54–66; TEMP 97.6–98.9; O2SAT 85–97
[2023-07-01] MEDS: KETOROLAC 30 MG/ML 1ML VIAL IV SCH ×3 (01:15→17:11)
[2023-07-01] MEDS: PIPERACILLIN/TAZOBACTAM SOD 3.375 GM in D5W MINI-BAG PLUS 50 ML IV SCH ×4 (03:39→21:22)
[2023-07-01] MEDS: FLUCONAZOLE 400 MG in IV 1 EA IV SCH (04:44)
[2023-07-01 05:44] LABS: HEMATOCRIT 27.7 % (42.0-52.0); MEAN CORPUSCULAR HEMOGLOBIN 28.9 pg (27.0-33.0); MEAN CORPUSCULAR HGB CONC 31.8 g/dl (32.0-36.5); MEAN CORPUSCULAR VOLUME 90.8 fl (80.0-96.0); PLATELET COUNT, AUTOMATED 278 10^3/uL (150-450); RED BLOOD COUNT 3.05 10^6/uL (4.30-6.10); WHITE BLOOD COUNT 13.5 10^3/uL (4.0-10.0)
[2023-07-01 05:59] LABS: HEMOGLOBIN 8.8 g/dl (13.5-17.5)
[2023-07-01] MEDS: tiZANidine 4 MG TAB PO SCH ×3 (05:59→21:22)
[2023-07-01 06:13] LABS: ALBUMIN 1.6 G/DL (3.2-5.2); ALKALINE PHOSPHATASE 63 U/L (46-116); ALT/SGPT 20 U/L (7.0-40); AST/SGOT 22 U/L (<34); BILIRUBIN,TOTAL 0.5 MG/DL (0.3-1.2); BLOOD UREA NITROGEN 18 MG/DL (9-23); CALCIUM LEVEL 7.1 MG/DL (8.5-10.1); CARBON DIOXIDE LEVEL 27 MMOL/L (20-31); CHLORIDE LEVEL 99 MMOL/L (98-107); CREATININE FOR GFR 0.83 MG/DL (0.70-1.30); GLOMERULAR FILTRATION RATE > 60.0 (>56); GLUCOSE, FASTING 106 MG/DL (60-100); POTASSIUM SERUM 4.4 MMOL/L (3.5-5.1); SODIUM LEVEL 131 MMOL/L (136-145); TOTAL PROTEIN 4.4 G/DL (5.7-8.2)
[2023-07-01] MEDS: LR 1,000 ML IV SCH (06:43)
[2023-07-01] MEDS: IPRATROPIUM 0.5MG/ALBUTEROL 2.5MG INH SOL UD 3ML (DUONEB) NEB SCH ×3 (07:22→20:00)
[2023-07-01] MEDS: NS 1,000 ML IV SCH ×2 (07:41→17:22)
[2023-07-01] MEDS: SUCRALFATE 1 GM TAB PO SCH ×4 (08:27→21:23)
[2023-07-01] MEDS: PANTOPRAZOLE 40MG VIAL IV SCH ×2 (08:27→21:22)
[2023-07-01] MEDS: SENOKOT S TAB PO SCH ×2 (08:27→21:23)
[2023-07-01] MEDS: GABAPENTIN 400MG CAP PO SCH ×3 (08:27→21:22)
[2023-07-01] MEDS ORDERED: GASTROGRAFIN SOLUTION 30ML As Ordered ONE (10:23)
[2023-07-01] MEDS: MORPHINE 1MG/ML IN 0.9% NACL 100ML IV BAG IV PRN (19:51)
[2023-07-01] MEDS: EZETIMIBE 10MG TABLET (ZETIA) PO SCH (21:22)
[2023-07-01] MEDS: FLUoxetine 20MG CAP PO SCH (21:23)
[2023-07-01] MEDS: rOPINIRole 2MG TAB PO SCH (21:23)
[2023-07-02] VITALS: O2SAT 95
[2023-07-02] MEDS: KETOROLAC 30 MG/ML 1ML VIAL IV SCH ×4 (00:38→23:40)
[2023-07-02 03:19] VITALS: BP_SYST 112; BP_SYST 96; BP_DIAS 60; TEMP 98.5; O2SAT 95
[2023-07-02] MEDS: NS 1,000 ML IV SCH (03:32)
[2023-07-02] MEDS: PIPERACILLIN/TAZOBACTAM SOD 3.375 GM in D5W MINI-BAG PLUS 50 ML IV SCH ×4 (03:32→21:04)
[2023-07-02] MEDS: tiZANidine 4 MG TAB PO SCH ×3 (05:06→21:04)
[2023-07-02] MEDS: FLUCONAZOLE 400 MG in IV 1 EA IV SCH (05:06)
[2023-07-02 05:18] LABS: HEMATOCRIT 26.9 % (42.0-52.0); HEMOGLOBIN 8.5 g/dl (13.5-17.5); MEAN CORPUSCULAR HGB CONC 31.6 g/dl (32.0-36.5); MEAN CORPUSCULAR VOLUME 91.8 fl (80.0-96.0); PLATELET COUNT, AUTOMATED 333 10^3/uL (150-450); RED BLOOD COUNT 2.93 10^6/uL (4.30-6.10); WHITE BLOOD COUNT 17.1 10^3/uL (4.0-10.0)
[2023-07-02 05:38] LABS: ALBUMIN 1.6 G/DL (3.2-5.2); ALKALINE PHOSPHATASE 72 U/L (46-116); ALT/SGPT 17 U/L (7.0-40); AST/SGOT 15 U/L (<34); BILIRUBIN,TOTAL 0.4 MG/DL (0.3-1.2); BLOOD UREA NITROGEN 15 MG/DL (9-23); CALCIUM LEVEL 7.6 MG/DL (8.5-10.1); CARBON DIOXIDE LEVEL 26 MMOL/L (20-31); CHLORIDE LEVEL 101 MMOL/L (98-107); CREATININE FOR GFR 0.71 MG/DL (0.70-1.30); GLOMERULAR FILTRATION RATE > 60.0 (>56); GLUCOSE, FASTING 102 MG/DL (60-100); POTASSIUM SERUM 4.2 MMOL/L (3.5-5.1); SODIUM LEVEL 133 MMOL/L (136-145); TOTAL PROTEIN 4.5 G/DL (5.7-8.2)
[2023-07-02] MEDS: IPRATROPIUM 0.5MG/ALBUTEROL 2.5MG INH SOL UD 3ML (DUONEB) NEB SCH ×3 (07:28→20:06)
[2023-07-02] MEDS: PANTOPRAZOLE 40MG VIAL IV SCH ×2 (08:10→20:40)
[2023-07-02] MEDS: GABAPENTIN 400MG CAP PO SCH ×3 (08:11→20:40)
[2023-07-02] MEDS: SENOKOT S TAB PO SCH ×2 (08:11→20:40)
[2023-07-02] MEDS: SUCRALFATE 1 GM TAB PO SCH ×4 (08:11→20:40)
[2023-07-02 08:16] VITALS: BP 111/68; TEMP 99; O2SAT 96
[2023-07-02 17:30] VITALS: BP 142/80; TEMP 99; O2SAT 91
[2023-07-02] MEDS: MORPHINE 1MG/ML IN 0.9% NACL 100ML IV BAG IV PRN (18:38)
[2023-07-02 20:00] VITALS: BP 122/71; TEMP 99.1; O2SAT 95
[2023-07-02] MEDS: FLUoxetine 20MG CAP PO SCH (20:40)
[2023-07-02] MEDS: rOPINIRole 2MG TAB PO SCH (20:40)
[2023-07-02] MEDS: EZETIMIBE 10MG TABLET (ZETIA) PO SCH (20:42)
[2023-07-03] MEDS: PIPERACILLIN/TAZOBACTAM SOD 3.375 GM in D5W MINI-BAG PLUS 50 ML IV SCH ×4 (04:28→21:43)
[2023-07-03] MEDS: FLUCONAZOLE 400 MG in IV 1 EA IV SCH (05:39)
[2023-07-03] MEDS: tiZANidine 4 MG TAB PO SCH ×3 (05:40→21:43)
[2023-07-03 06:00] VITALS: BP 130/81; TEMP 99; O2SAT 98
[2023-07-03 06:08] LABS: HEMATOCRIT 27.4 % (42.0-52.0); HEMOGLOBIN 8.6 g/dl (13.5-17.5); MEAN CORPUSCULAR HEMOGLOBIN 29.6 pg (27.0-33.0); MEAN CORPUSCULAR HGB CONC 31.4 g/dl (32.0-36.5); MEAN CORPUSCULAR VOLUME 94.2 fl (80.0-96.0); PLATELET COUNT, AUTOMATED 379 10^3/uL (150-450); RED BLOOD COUNT 2.91 10^6/uL (4.30-6.10); WHITE BLOOD COUNT 13.3 10^3/uL (4.0-10.0)
[2023-07-03 06:21] LABS: ALBUMIN 1.6 G/DL (3.2-5.2); ALKALINE PHOSPHATASE 95 U/L (46-116); ALT/SGPT 15 U/L (7.0-40); AST/SGOT 23 U/L (<34); BILIRUBIN,TOTAL 0.4 MG/DL (0.3-1.2); BLOOD UREA NITROGEN 10 MG/DL (9-23); CALCIUM LEVEL 7.6 MG/DL (8.5-10.1); CARBON DIOXIDE LEVEL 23 MMOL/L (20-31); CHLORIDE LEVEL 103 MMOL/L (98-107); CREATININE FOR GFR 0.68 MG/DL (0.70-1.30); GLOMERULAR FILTRATION RATE > 60.0 (>56); GLUCOSE, FASTING 78 MG/DL (60-100); POTASSIUM SERUM 4.4 MMOL/L (3.5-5.1); SODIUM LEVEL 134 MMOL/L (136-145); TOTAL PROTEIN 4.7 G/DL (5.7-8.2)
[2023-07-03] MEDS: GABAPENTIN 400MG CAP PO SCH ×3 (08:32→20:36)
[2023-07-03] MEDS: PANTOPRAZOLE 40MG VIAL IV SCH ×2 (08:33→21:43)
[2023-07-03] MEDS: SENOKOT S TAB PO SCH ×2 (08:33→20:36)
[2023-07-03] MEDS: ENOXAPARIN 40MG/0.4ML SYRINGE (J1650 PER 10MG) SC SCH (08:33)
[2023-07-03] MEDS: SUCRALFATE 1 GM TAB PO SCH ×4 (08:33→20:36)
[2023-07-03] MEDS ORDERED: ANEXSIA, NORCO 7.5MG/325MG TABLET(HYDROCODONE/APAP) PO PRN (10:35)
[2023-07-03] MEDS ORDERED: MORPHINE 10 MG/ML 1ML VIAL IV PRN (10:35)
[2023-07-03] MEDS: ANEXSIA, NORCO 7.5MG/325MG TABLET(HYDROCODONE/APAP) PO PRN ×3 (11:37→20:37)
[2023-07-03] MEDS: IPRATROPIUM 0.5MG/ALBUTEROL 2.5MG INH SOL UD 3ML (DUONEB) NEB SCH ×3 (11:45→21:10)
[2023-07-03 12:54] VITALS: O2SAT 92
[2023-07-03 14:00] VITALS: BP 106/50; TEMP 97.3; O2SAT 95
[2023-07-03] MEDS ORDERED: FUROSEMIDE 40MG/4ML VIAL IV ONE (17:50)
[2023-07-03 20:00] VITALS: BP 139/84; TEMP 98.8; O2SAT 92
[2023-07-03] MEDS: EZETIMIBE 10MG TABLET (ZETIA) PO SCH (20:36)
[2023-07-03] MEDS: FLUoxetine 20MG CAP PO SCH (20:36)
[2023-07-03] MEDS: rOPINIRole 2MG TAB PO SCH (21:43)
[2023-07-04] MEDS: ANEXSIA, NORCO 7.5MG/325MG TABLET(HYDROCODONE/APAP) PO PRN ×5 (03:01→21:13)
[2023-07-04] MEDS: PIPERACILLIN/TAZOBACTAM SOD 3.375 GM in D5W MINI-BAG PLUS 50 ML IV SCH ×3 (03:11→16:53)
[2023-07-04] MEDS: FLUCONAZOLE 400 MG in IV 1 EA IV SCH (04:51)
[2023-07-04] MEDS: tiZANidine 4 MG TAB PO SCH ×3 (05:26→21:11)
[2023-07-04 05:57] VITALS: BP 107/66; TEMP 97.7; O2SAT 95
[2023-07-04 06:16] LABS: HEMATOCRIT 25.2 % (42.0-52.0); MEAN CORPUSCULAR HEMOGLOBIN 29.3 pg (27.0-33.0); MEAN CORPUSCULAR HGB CONC 31.7 g/dl (32.0-36.5); MEAN CORPUSCULAR VOLUME 92.3 fl (80.0-96.0); PLATELET COUNT, AUTOMATED 489 10^3/uL (150-450); RED BLOOD COUNT 2.73 10^6/uL (4.30-6.10); WHITE BLOOD COUNT 10.3 10^3/uL (4.0-10.0)
[2023-07-04 06:37] LABS: ALBUMIN 1.4 G/DL (3.2-5.2); ALKALINE PHOSPHATASE 78 U/L (46-116); ALT/SGPT 14 U/L (7.0-40); AST/SGOT 14 U/L (<34); BILIRUBIN,TOTAL 0.2 MG/DL (0.3-1.2); BLOOD UREA NITROGEN 9 MG/DL (9-23); CALCIUM LEVEL 7.7 MG/DL (8.5-10.1); CARBON DIOXIDE LEVEL 31 MMOL/L (20-31); CHLORIDE LEVEL 100 MMOL/L (98-107); GLOMERULAR FILTRATION RATE > 60.0 (>56); GLUCOSE, FASTING 87 MG/DL (60-100); POTASSIUM SERUM 3.9 MMOL/L (3.5-5.1); SODIUM LEVEL 135 MMOL/L (136-145); TOTAL PROTEIN 4.7 G/DL (5.7-8.2)
[2023-07-04 07:56] VITALS: O2SAT 99
[2023-07-04] MEDS: IPRATROPIUM 0.5MG/ALBUTEROL 2.5MG INH SOL UD 3ML (DUONEB) NEB SCH ×3 (07:56→20:30)
[2023-07-04 08:02] VITALS: O2SAT 95
[2023-07-04] MEDS: ENOXAPARIN 40MG/0.4ML SYRINGE (J1650 PER 10MG) SC SCH (08:56)
[2023-07-04] MEDS: FUROSEMIDE 40MG/4ML VIAL IV SCH (08:56)
[2023-07-04] MEDS: GABAPENTIN 400MG CAP PO SCH ×3 (08:57→21:13)
[2023-07-04] MEDS: SENOKOT S TAB PO SCH ×2 (08:57→21:13)
[2023-07-04] MEDS: SUCRALFATE 1 GM TAB PO SCH ×4 (08:57→21:13)
[2023-07-04] MEDS: PANTOPRAZOLE 40MG TAB (PROTONIX) PO SCH ×2 (08:57→21:12)
[2023-07-04] MEDS ORDERED: FUROSEMIDE 40MG/4ML VIAL IV SCH (09:00)
[2023-07-04 14:00] VITALS: BP 112/66; TEMP 97.7; O2SAT 94
[2023-07-04 20:50] VITALS: BP 111/67; TEMP 98.6; O2SAT 99
[2023-07-04] MEDS: FLUoxetine 20MG CAP PO SCH (21:12)
[2023-07-04] MEDS: rOPINIRole 2MG TAB PO SCH (21:12)
[2023-07-04] MEDS: AUGMENTIN 875 MG TAB PO SCH (21:13)
[2023-07-04] MEDS: EZETIMIBE 10MG TABLET (ZETIA) PO SCH (21:13)
[2023-07-05] MEDS: ANEXSIA, NORCO 7.5MG/325MG TABLET(HYDROCODONE/APAP) PO PRN ×6 (02:05→22:49)
[2023-07-05] MEDS: tiZANidine 4 MG TAB PO SCH ×3 (05:23→21:50)
[2023-07-05 05:45] VITALS: BP 110/68; TEMP 97.4; O2SAT 99
[2023-07-05 05:48] LABS: HEMATOCRIT 29.6 % (42.0-52.0); HEMOGLOBIN 9.1 g/dl (13.5-17.5); MEAN CORPUSCULAR HEMOGLOBIN 28.3 pg (27.0-33.0); MEAN CORPUSCULAR HGB CONC 30.7 g/dl (32.0-36.5); MEAN CORPUSCULAR VOLUME 91.9 fl (80.0-96.0); RED BLOOD COUNT 3.22 10^6/uL (4.30-6.10)
[2023-07-05 05:56] LABS: PLATELET COUNT, AUTOMATED 618 10^3/uL (150-450)
[2023-07-05 06:15] LABS: ALBUMIN 1.5 G/DL (3.2-5.2); ALKALINE PHOSPHATASE 87 U/L (46-116); ALT/SGPT 16 U/L (7.0-40); AST/SGOT 15 U/L (<34); BILIRUBIN,TOTAL 0.2 MG/DL (0.3-1.2); BLOOD UREA NITROGEN 9 MG/DL (9-23); CALCIUM LEVEL 7.9 MG/DL (8.5-10.1); CARBON DIOXIDE LEVEL 30 MMOL/L (20-31); CHLORIDE LEVEL 100 MMOL/L (98-107); CREATININE FOR GFR 0.64 MG/DL (0.70-1.30); GLOMERULAR FILTRATION RATE > 60.0 (>56); GLUCOSE, FASTING 93 MG/DL (60-100); POTASSIUM SERUM 4.5 MMOL/L (3.5-5.1); SODIUM LEVEL 136 MMOL/L (136-145); TOTAL PROTEIN 5.1 G/DL (5.7-8.2)
[2023-07-05] MEDS: IPRATROPIUM 0.5MG/ALBUTEROL 2.5MG INH SOL UD 3ML (DUONEB) NEB SCH ×3 (07:22→20:00)
[2023-07-05] MEDS: FUROSEMIDE 40MG/4ML VIAL IV SCH (08:11)
[2023-07-05] MEDS: PANTOPRAZOLE 40MG TAB (PROTONIX) PO SCH ×2 (08:11→21:50)
[2023-07-05] MEDS: SUCRALFATE 1 GM TAB PO SCH ×4 (08:11→21:50)
[2023-07-05] MEDS: FLUCONAZOLE 100 MG TAB PO SCH (08:11)
[2023-07-05] MEDS: SENOKOT S TAB PO SCH ×2 (08:11→21:50)
[2023-07-05] MEDS: AUGMENTIN 875 MG TAB PO SCH ×2 (08:11→21:50)
[2023-07-05] MEDS: GABAPENTIN 400MG CAP PO SCH ×3 (08:11→21:50)
[2023-07-05] MEDS: ENOXAPARIN 40MG/0.4ML SYRINGE (J1650 PER 10MG) SC SCH (08:12)
[2023-07-05 13:50] VITALS: BP 115/75; TEMP 97.9; O2SAT 93; O2SAT 97
[2023-07-05 19:17] VITALS: BP 108/64; TEMP 98.1; O2SAT 95
[2023-07-05] MEDS: EZETIMIBE 10MG TABLET (ZETIA) PO SCH (21:50)
[2023-07-05] MEDS: FLUoxetine 20MG CAP PO SCH (21:50)
[2023-07-05] MEDS: rOPINIRole 2MG TAB PO SCH (21:50)
[2023-07-06] MEDS: ANEXSIA, NORCO 7.5MG/325MG TABLET(HYDROCODONE/APAP) PO PRN ×5 (02:52→21:12)
[2023-07-06] MEDS: tiZANidine 4 MG TAB PO SCH ×3 (05:11→21:10)
[2023-07-06 05:12] VITALS: BP 92/48; TEMP 98.2; O2SAT 93
[2023-07-06 05:40] VITALS: BP 82/50
[2023-07-06] MEDS ORDERED: LACTATED RINGER'S 1000 ML IV ONE (05:45)
[2023-07-06 06:28] VITALS: BP 88/50
[2023-07-06] MEDS ORDERED: LR 500 ML IV STA (06:36)
[2023-07-06] MEDS: IPRATROPIUM 0.5MG/ALBUTEROL 2.5MG INH SOL UD 3ML (DUONEB) NEB SCH ×3 (07:09→20:14)
[2023-07-06 07:15] VITALS: BP 88/50
[2023-07-06] MEDS: FLUCONAZOLE 100 MG TAB PO SCH (08:29)
[2023-07-06] MEDS: GABAPENTIN 400MG CAP PO SCH ×3 (08:29→20:19)
[2023-07-06] MEDS: SUCRALFATE 1 GM TAB PO SCH ×4 (08:29→20:19)
[2023-07-06] MEDS: ENOXAPARIN 40MG/0.4ML SYRINGE (J1650 PER 10MG) SC SCH (08:29)
[2023-07-06] MEDS: AUGMENTIN 875 MG TAB PO SCH ×2 (08:29→20:19)
[2023-07-06] MEDS: PANTOPRAZOLE 40MG TAB (PROTONIX) PO SCH ×2 (08:29→20:19)
[2023-07-06] MEDS: SENOKOT S TAB PO SCH ×2 (08:29→20:19)
[2023-07-06 14:00] VITALS: BP 108/61; TEMP 97.9; O2SAT 92
[2023-07-06] MEDS: rOPINIRole 2MG TAB PO SCH (20:19)
[2023-07-06] MEDS: FLUoxetine 20MG CAP PO SCH (20:19)
[2023-07-06] MEDS: EZETIMIBE 10MG TABLET (ZETIA) PO SCH (20:19)
[2023-07-06 22:00] VITALS: BP 112/65; TEMP 97.7; O2SAT 95
[2023-07-07] MEDS: ANEXSIA, NORCO 7.5MG/325MG TABLET(HYDROCODONE/APAP) PO PRN ×2 (01:39→06:19)
[2023-07-07] MEDS: tiZANidine 4 MG TAB PO SCH (05:13)
[2023-07-07 06:00] VITALS: BP 119/72; TEMP 97.7; O2SAT 94
[2023-07-07 06:49] VITALS: O2SAT 94
[2023-07-07] MEDS: IPRATROPIUM 0.5MG/ALBUTEROL 2.5MG INH SOL UD 3ML (DUONEB) NEB SCH (07:42)
[2023-07-07] MEDS: AUGMENTIN 875 MG TAB PO SCH (08:42)
[2023-07-07] MEDS: SUCRALFATE 1 GM TAB PO SCH ×2 (08:43→11:39)
[2023-07-07] MEDS: FLUCONAZOLE 100 MG TAB PO SCH (08:43)
[2023-07-07] MEDS: PANTOPRAZOLE 40MG TAB (PROTONIX) PO SCH (08:43)
[2023-07-07] MEDS: SENOKOT S TAB PO SCH (08:43)
[2023-07-07] MEDS: GABAPENTIN 400MG CAP PO SCH (08:43)
[2023-07-07] MEDS: ENOXAPARIN 40MG/0.4ML SYRINGE (J1650 PER 10MG) SC SCH (08:45)
[2023-07-07 10:35] VITALS: BP 100/63
[2023-07-07] MEDS ORDERED: NORCO, ANEXSIA 5/325MG TABLET (HYDROcodone/ACETAMINOPHEN) PO PRN (10:55)
[2023-07-07] MEDS ORDERED: AMOX875T2 PO (11:07)
[2023-07-07] MEDS ORDERED: FLUC100T3 PO (11:07)
[2023-07-07] MEDS ORDERED: HYDR-3715 PO (11:09)
[2023-07-07 12:15] VITALS: BP 131/86
[2023-07-07 12:48] VITALS: BP 131/86
== END 2023-07-07 13:46 | disposition home health service (06) | DRG 227 ==
LOC: M ED 17:38 → EDBEDREQTM 20:32 → M SDC 21:57 → M RR INP 06-30 03:19 → UNDOADMIN 06-30 03:19 → M ED INP 06-30 03:19 → M PCU 06-30 03:56 → M MSPAV 07-02 17:21
PROVIDERS: ADMIT Surgery; ATTEND Internal Medicine Nephrology
PROC: 0WUF07Z Supplement Abdominal Wall with Autologous Tissue Substitute, Open Approach (ICD-10-PCS; 2023-06-29)
PROC: 0DBU0ZZ Excision of Omentum, Open Approach (ICD-10-PCS; principal; 2023-06-29 22:00)
PROC: 0DCU0ZZ Extirpation of Matter from Omentum, Open Approach (ICD-10-PCS; 2023-06-29 22:00)
DX: K28.5 Chronic or unspecified gastrojejunal ulcer with perforation (principal); J96.11 Chronic respiratory failure with hypoxia; K65.0 Generalized (acute) peritonitis; J90 Pleural effusion, not elsewhere classified; K63.0 Abscess of intestine; Z99.81 Dependence on supplemental oxygen; J98.11 Atelectasis; G25.81 Restless legs syndrome; M54.9 Dorsalgia, unspecified; D64.9 Anemia, unspecified; J30.9 Allergic rhinitis, unspecified; E78.00 Pure hypercholesterolemia, unspecified; Y83.2 Surgical operation with anastomosis, bypass or graft as the cause of abnormal reaction of the patient, or of later complication, without mention of misadventure at the time of the procedure; F32.A Depression, unspecified; Z53.31 Laparoscopic surgical procedure converted to open procedure; G89.29 Other chronic pain; I10 Essential (primary) hypertension; J44.9 Chronic obstructive pulmonary disease, unspecified; K95.81 Infection due to other bariatric procedure; Z98.84 Bariatric surgery status; Z87.891 Personal history of nicotine dependence; Z79.899 Other long term (current) drug therapy

== ENCOUNTER → 2023-07-25 | Outpatient (CLI) | payer BC ==
[~2023-07-25] MED LIST changes: +AMOX875T2 PO; +EZET10TA21 PO; +FLUC100T3 PO; +HYDR-3715 PO; +ROPI2TAB46 PO
[2023-07-25 15:34] LABS: BASO # 0.1 10^3/uL (0.0-0.2); BASO % 0.6 % (0.0-1.0); EOS # 0.2 10^3/uL (0.0-0.5); EOS % 1.9 % (0.0-3.0); HEMATOCRIT 44.7 % (42.0-52.0); HEMOGLOBIN 13.6 g/dl (13.5-17.5); LYMPH % 31.5 % (24.0-44.0); MEAN CORPUSCULAR HEMOGLOBIN 27.5 pg (27.0-33.0); MEAN CORPUSCULAR HGB CONC 30.4 g/dl (32.0-36.5); MEAN CORPUSCULAR VOLUME 90.3 fl (80.0-96.0); MONO # 0.9 10^3/uL (0.0-0.8); MONO % 9.8 % (2.0-8.0); NEUTROPHILS # 5.3 10^3/uL (1.5-8.5); PLATELET COUNT, AUTOMATED 392 10^3/uL (150-450); RED BLOOD COUNT 4.95 10^6/uL (4.30-6.10); WHITE BLOOD COUNT 9.4 10^3/uL (4.0-10.0)
[2023-07-25 15:55] LABS: C REACTIVE PROTEIN QUANTITATIV < 0.40 MG/DL (<1.0)
[2023-07-25 15:57] LABS: BLOOD UREA NITROGEN 15 MG/DL (9-23); CALCIUM LEVEL 9.3 MG/DL (8.5-10.1); CARBON DIOXIDE LEVEL 32 MMOL/L (20-31); CHLORIDE LEVEL 103 MMOL/L (98-107); GLOMERULAR FILTRATION RATE > 60.0 (>56); GLUCOSE, FASTING 99 MG/DL (60-100); PREALBUMIN 15.9 MG/DL (10.0-40.0); SODIUM LEVEL 140 MMOL/L (136-145)
== END ==
LOC: M LAB 14:56
PROVIDERS: ATTEND Surgery
DX: K25.5 Chronic or unspecified gastric ulcer with perforation (principal)

== ENCOUNTER → 2023-07-29 | Outpatient (CLI) | payer BC ==
[~2023-07-29] MED LIST changes: +GASTROGRAFIN SOLUTION 30ML As Ordered ONE; +ISOVUE-370 76% 100ML VIAL As Ordered ONE
== END ==
LOC: M RAD 07:58
PROVIDERS: ATTEND Physician Assistant
DX: K25.5 Chronic or unspecified gastric ulcer with perforation (principal); K83.8 Other specified diseases of biliary tract
CPT/HCPCS: 74177; Q9963; Q9967

== ENCOUNTER 2023-10-19 09:26 | Day surgery (SDC) | payer BC ==
[~2023-10-19] VITALS: Ht 180.3 cm; Wt 74.6 kg
[~2023-10-19 09:26] MED LIST changes: +CEFD1CAP9 PO; -CEFD300C41 PO; -GASTROGRAFIN SOLUTION 30ML As Ordered ONE; +HYDR-4571 PO; +IPRA0.00 INH; -ISOVUE-370 76% 100ML VIAL As Ordered ONE; +LIDOCAINE 2% 100MG/5ML SDV (FOR ANES.) As Ordered ONE; +NS 1,000 ML IV ONE; +PANT40TA29 PO; +PREG100CA PO; +PROBCAP14 PO; +fentaNYL 100 MCG/2 ML INJECTION As Ordered ONE; +propofoL 200 MG/20 ML VIAL As Ordered ONE
[2023-10-19 10:36] VITALS: TEMP 97
[2023-10-19 10:55] VITALS: BP 129/67; O2SAT 96
== END 2023-10-19 11:04 | disposition home or self-care (01) ==
LOC: M OPP 09:26
PROVIDERS: ATTEND Surgery
DX: K28.1 Acute gastrojejunal ulcer with perforation (principal); Z09 Encounter for follow-up examination after completed treatment for conditions other than malignant neoplasm; K44.9 Diaphragmatic hernia without obstruction or gangrene; Z98.0 Intestinal bypass and anastomosis status; Z87.891 Personal history of nicotine dependence; Z79.51 Long term (current) use of inhaled steroids; Z79.891 Long term (current) use of opiate analgesic; Z79.899 Other long term (current) drug therapy
CPT/HCPCS: 43235; J3010

== ENCOUNTER 2023-11-28 10:23 | Outpatient (RCR) | payer BC ==
[~2023-11-28 10:23] MED LIST changes: -LIDOCAINE 2% 100MG/5ML SDV (FOR ANES.) As Ordered ONE; -NS 1,000 ML IV ONE; -fentaNYL 100 MCG/2 ML INJECTION As Ordered ONE; -propofoL 200 MG/20 ML VIAL As Ordered ONE
[2023-11-30] MEDS ORDERED: LYRI150C PO (13:25)
[2023-12-04] MEDS ORDERED: CEFD1CAP9 (12:05)
[2023-12-04] MEDS ORDERED: PRED10TA2 (12:05)
[2023-12-04] MEDS ORDERED: DOXY100C82 PO (13:26)
== END 2023-12-07 ==
LOC: M PT 10:23
PROVIDERS: ATTEND Internal Medicine Pulmonary Disease
DX: J98.4 Other disorders of lung (principal)

== ENCOUNTER → 2023-11-30 | Outpatient (CLI) | payer BC ==
[~2023-11-30] MED LIST changes: +LYRI150C PO
== END ==
LOC: M RAD 17:27
PROVIDERS: ATTEND Internal Medicine Pulmonary Disease
DX: J43.9 Emphysema, unspecified (principal); R06.00 Dyspnea, unspecified

== ENCOUNTER 2023-12-04 11:24 | Emergency (ER) | payer BC ==
[~2023-12-04] VITALS: Ht 177.8 cm; Wt 74.6 kg
[2023-12-04] MEDS ORDERED: methylPREDNISolone 125MG 2ML VIAL IV ONE (11:40)
[2023-12-04] MEDS ORDERED: IPRATROPIUM 0.5MG/ALBUTEROL 2.5MG INH SOL UD 3ML (DUONEB) NEB PRN (11:40)
[2023-12-04 11:57] LABS: VENOUS BASE EXCESS 2.8 (-2.0-2.0); VENOUS HCO3 29.9 MMOL/L (23.0-27.0); VENOUS O2 SATURATION 60.5 % (60.0-80.0); VENOUS PARTIAL PRESSURE CO2 58.1 mmHg (38.0-50.0); VENOUS PARTIAL PRESSURE O2 34.2 mmHg (30.0-50.0); VENOUS PH 7.329 UNITS (7.330-7.430); VENOUS STANDARD HCO3 26.3 MMOL/L; VENOUS TOTAL CO2 31.7 MMOL/L (24.0-28.0)
[2023-12-04 12:01] LABS: BASO % 0.3 % (0.0-1.0); EOS # 0.1 10^3/uL (0.0-0.5); EOS % 1.8 % (0.0-3.0); HEMATOCRIT 33.9 % (42.0-52.0); HEMOGLOBIN 10.3 g/dl (13.5-17.5); LYMPH # 2.5 10^3/uL (1.5-5.0); LYMPH % 38.8 % (24.0-44.0); MEAN CORPUSCULAR HEMOGLOBIN 25.1 pg (27.0-33.0); MEAN CORPUSCULAR HGB CONC 30.4 g/dl (32.0-36.5); MEAN CORPUSCULAR VOLUME 82.5 fl (80.0-96.0); MONO # 0.6 10^3/uL (0.0-0.8); MONO % 9.2 % (2.0-8.0); NEUTROPHILS # 3.2 10^3/uL (1.5-8.5); NEUTROPHILS % 49.6 % (36.0-66.0); PLATELET COUNT, AUTOMATED 260 10^3/uL (150-450); RED BLOOD COUNT 4.11 10^6/uL (4.30-6.10); WHITE BLOOD COUNT 6.5 10^3/uL (4.0-10.0)
[2023-12-04] MEDS ORDERED: PRED10TA2 (12:05)
[2023-12-04] MEDS ORDERED: CEFD1CAP9 (12:05)
[2023-12-04 12:32] LABS: ALKALINE PHOSPHATASE 94 U/L (46-116); ALT/SGPT 21 U/L (7.0-40); AST/SGOT 29 U/L (<34); BILIRUBIN,DIRECT < 0.1 MG/DL (<0.4); BILIRUBIN,TOTAL 0.2 MG/DL (0.3-1.2); BLOOD UREA NITROGEN 22 MG/DL (9-23); CALCIUM LEVEL 8.4 MG/DL (8.5-10.1); CARBON DIOXIDE LEVEL 30 MMOL/L (20-31); CHLORIDE LEVEL 109 MMOL/L (98-107); CREATININE FOR GFR 0.69 MG/DL (0.70-1.30); GLOMERULAR FILTRATION RATE > 60.0 (>56); GLUCOSE, FASTING 71 MG/DL (60-100); POTASSIUM SERUM 4.2 MMOL/L (3.5-5.1); SODIUM LEVEL 143 MMOL/L (136-145); TOTAL PROTEIN 6.2 G/DL (5.7-8.2)
[2023-12-04 12:34] LABS: THYROID STIMULATING HORMONE 1.984 uIU/ML (0.55-4.78)
[2023-12-04] MEDS ORDERED: MED REC IN PROGRESS XX SCH (13:15)
[2023-12-04 13:21] VITALS: O2SAT 91
[2023-12-04] MEDS ORDERED: DOXY100C82 PO (13:26)
[2023-12-04 13:45] VITALS: BP 134/78; TEMP 97; O2SAT 93
== END 2023-12-04 13:55 | disposition home or self-care (01) ==
LOC: EDBD 11:24 → M ED 11:24
DX: J44.1 Chronic obstructive pulmonary disease with (acute) exacerbation (principal); Z87.01 Personal history of pneumonia (recurrent); Z86.19 Personal history of other infectious and parasitic diseases; Z98.84 Bariatric surgery status; Z87.891 Personal history of nicotine dependence; Z79.899 Other long term (current) drug therapy
CPT/HCPCS: 71045; 80048; 80076; 82803; 83605; 83880; 84443; 85025; 87040; 87486; 87581; 87633; 87798; 93005; 93041; 94640; 94760; 96374; 99285; J2930

== ENCOUNTER 2023-12-14 10:25 | Day surgery (SDC) | payer BC ==
[~2023-12-14] VITALS: Ht 175.3 cm; Wt 72.6 kg
[~2023-12-14 10:25] MED LIST changes: +CEFD1CAP9; +DOXY100C82 PO; +PRED10TA2
[2023-12-14] MEDS: NS 1,000 ML IV ONE (11:17)
[2023-12-14] MEDS ORDERED: propofoL 200 MG/20 ML VIAL As Ordered ONE (12:32)
[2023-12-14 12:52] VITALS: TEMP 97.3
[2023-12-14 13:13] VITALS: BP 158/79; O2SAT 97
== END 2023-12-14 13:15 | disposition home or self-care (01) ==
LOC: M OPP 10:25
PROVIDERS: ATTEND Surgery
DX: Z12.11 Encounter for screening for malignant neoplasm of colon (principal); K64.9 Unspecified hemorrhoids; Z98.84 Bariatric surgery status; Z87.891 Personal history of nicotine dependence; G47.9 Sleep disorder, unspecified; Z79.899 Other long term (current) drug therapy

== ENCOUNTER → 2024-01-13 | Outpatient (CLI) | payer BC | LOC: M RAD 12:58 | PROVIDERS: ATTEND Internal Medicine Pulmonary Disease | DX: R91.8 Other nonspecific abnormal finding of lung field (principal); N28.1 Cyst of kidney, acquired ==

== ENCOUNTER → 2024-03-05 | Outpatient (CLI) | payer BC | LOC: M PLARAD 12:21 | PROVIDERS: ATTEND Internal Medicine Pulmonary Disease | DX: R91.8 Other nonspecific abnormal finding of lung field (principal) | CPT/HCPCS: 78815; A9552 ==

== ENCOUNTER → 2024-11-29 | Outpatient (REF) | payer OTHER ==
[~2024-11-29] MED LIST changes: +FLUO-365 PO; -FLUO20CA22 PO; +GABA-1635 PO; -GABA800T4 PO
[2024-11-29 18:29] LABS: HEMOGLOBIN 10.1 g/dl (13.5-17.5); MEAN CORPUSCULAR HEMOGLOBIN 25.4 pg (27.0-33.0); MEAN CORPUSCULAR HGB CONC 29.7 g/dl (32.0-36.5); MEAN CORPUSCULAR VOLUME 85.6 fl (80.0-96.0); PLATELET COUNT, AUTOMATED 226 10^3/uL (150-450); RED BLOOD COUNT 3.97 10^6/uL (4.30-6.10); WHITE BLOOD COUNT 6.8 10^3/uL (4.0-10.0)
== END ==
LOC: M LAB REF 17:23
PROVIDERS: ATTEND Internal Medicine Pulmonary Disease
DX: J43.1 Panlobular emphysema (principal)

== ENCOUNTER 2024-12-14 01:30 | Observation (INO) | payer OTHER ==
[~2024-12-14] VITALS: Ht 180.3 cm; Wt 93.2 kg
[2024-12-14] MEDS ORDERED: LEVALBUTEROL 1.25MG 0.5ML CONCENTRATE NEB NEB PRN (01:45)
[2024-12-14] MEDS: MORPHINE 4 MG/ML 1ML VIAL IV PRN (02:05)
[2024-12-14] MEDS: LEVALBUTEROL 1.25MG 0.5ML CONCENTRATE NEB NEB ONE ×2 (02:05)
[2024-12-14] MEDS: MAG SULF 1GM/100ML (MAG RUN) 1 GM in IV 1 EA IV ONE (02:06)
[2024-12-14 02:29] LABS: BASO % 0.4 % (0.0-1.0); EOS # 0.3 10^3/uL (0.0-0.5); EOS % 3.5 % (0.0-3.0); LYMPH # 3.3 10^3/uL (1.5-5.0); MEAN CORPUSCULAR HEMOGLOBIN 26.1 pg (27.0-33.0); MEAN CORPUSCULAR HGB CONC 29.4 g/dl (32.0-36.5); MEAN CORPUSCULAR VOLUME 88.8 fl (80.0-96.0); MONO # 1.1 10^3/uL (0.0-0.8); MONO % 11.3 % (2.0-8.0); NEUTROPHILS # 4.9 10^3/uL (1.5-8.5); NEUTROPHILS % 50.6 % (36.0-66.0); PLATELET COUNT, AUTOMATED 237 10^3/uL (150-450); RED BLOOD COUNT 3.83 10^6/uL (4.30-6.10); WHITE BLOOD COUNT 9.8 10^3/uL (4.0-10.0)
[2024-12-14 02:30] LABS: VENOUS BASE EXCESS -8.7 (-2.0-2.0); VENOUS HCO3 20.1 MMOL/L (23.0-27.0); VENOUS O2 SATURATION 97.5 % (60.0-80.0); VENOUS PARTIAL PRESSURE CO2 59.9 mmHg (38.0-50.0); VENOUS PARTIAL PRESSURE O2 120.8 mmHg (30.0-50.0); VENOUS PH 7.144 UNITS (7.330-7.430); VENOUS STANDARD HCO3 17.3 MMOL/L
[2024-12-14 02:54] LABS: ALBUMIN 3.5 G/DL (3.2-5.2); ALKALINE PHOSPHATASE 97 U/L (40-129); ALT/SGPT 45 U/L (7.0-40); AST/SGOT 112 U/L (<34); BILIRUBIN,DIRECT 0.2 MG/DL (<0.4); BILIRUBIN,TOTAL 0.4 MG/DL (0.3-1.2); BLOOD UREA NITROGEN 17 MG/DL (9-23); CARBON DIOXIDE LEVEL 29 MMOL/L (20-31); CHLORIDE LEVEL 105 MMOL/L (98-107); CK-MB VALUE MASS 3.5 NG/ML (<3.6); CPK CREATINE PHOSPHOKINASE 290 U/L (46-171); CREATININE FOR GFR 0.72 MG/DL (0.70-1.30); GLOMERULAR FILTRATION RATE > 60.0 (>56); GLUCOSE, FASTING 123 MG/DL (60-100); POTASSIUM SERUM 4.2 MMOL/L (3.5-5.1); SODIUM LEVEL 142 MMOL/L (136-145)
[2024-12-14 02:56] LABS: THYROXINE (T4) 9.9 UG/DL (4.5-10.9)
[2024-12-14] MEDS ORDERED: ISOVUE-370 76% 100ML VIAL As Ordered ONE (04:14)
[2024-12-14] MEDS: NS 500 ML IV ONE (04:48)
[2024-12-14] MEDS ORDERED: ACETAMINOPHEN 325 MG TAB PO PRN (05:45)
[2024-12-14] MEDS ORDERED: MAALOX 30 ML SUSP *UDC PO PRN (05:45)
[2024-12-14] MEDS ORDERED: MOM 30ML SUSPENSION UDC PO PRN (05:45)
[2024-12-14] MEDS: NS (Normal Saline) 0.9% 1,000 ML IV SCH (06:05)
[2024-12-14] MEDS: methylPREDNISolone 125MG 2ML VIAL IV STA (06:05)
[2024-12-14 07:16] LABS: CK-MB VALUE MASS 4.6 NG/ML (<3.6)
[2024-12-14 07:18] LABS: MB/CK RELATIVE INDEX 1.33 (< OR =4)
[2024-12-14] MEDS ORDERED: HYDR-3363 PO (08:09)
[2024-12-14] MEDS ORDERED: HYDR-3713 PO (08:09)
[2024-12-14] MEDS ORDERED: HOME MED LIST COMPLETE! XX SCH (08:15)
[2024-12-14 08:29] LABS: ABG BASE EXCESS -0.7 (-2.0-2.0); ABG HCO3 25.3 MMOL/L (22.0-26.0); ABG O2 SATURATION 97.7 % (95.0-99.0); ABG PARTIAL PRESSURE CO2 47.5 mmHg (35.0-45.0); ABG PARTIAL PRESSURE O2 99.9 mmHg (75.0-100.0); ABG STANDARD HCO3 23.9 MMOL/L. (22.0-26.0); ABG TOTAL CO2 26.7 MMOL/L (22.0-29.0); ABG pH (ARTERIAL) 7.344 UNITS (7.350-7.450)
[2024-12-14] MEDS: IPRATROPIUM 0.5MG/ALBUTEROL 2.5MG INH SOL UD 3ML (DUONEB) NEB SCH ×2 (08:33→13:22)
[2024-12-14 09:02] VITALS: O2SAT 93
[2024-12-14] MEDS: PANTOPRAZOLE 40MG VIAL IV SCH (09:43)
[2024-12-14] MEDS: DOCUSATE SODIUM 100MG CAPSULE PO SCH (09:43)
[2024-12-14] MEDS: HEPARIN SOD (PORCINE) 5000UNITS/ML 1ML VIAL/SYRINGE SC SCH (09:44)
[2024-12-14] MEDS ORDERED: IPRATROPIUM 0.5MG/ALBUTEROL 2.5MG INH SOL UD 3ML (DUONEB) NEB PRN (10:15)
[2024-12-14] MEDS: methylPREDNISolone 125MG 2ML VIAL IV SCH (12:42)
[2024-12-14] MEDS: NORCO, ANEXSIA 5/325MG TABLET (HYDROcodone/ACETAMINOPHEN) PO PRN (12:42)
[2024-12-14 15:01] VITALS: BP 142/70
[2024-12-14] MEDS ORDERED: PRED10TA2 PO (15:05)
[2024-12-14 16:15] VITALS: TEMP 98.7; O2SAT 96
[2024-12-14] MEDS: tiZANidine 4 MG TAB PO SCH (16:15)
[2024-12-14] MEDS: PREGABALIN 75 MG CAP(LYRICA) PO SCH (16:15)
[2024-12-14] MEDS ORDERED: GLYCOPYRROLATE INJ 0.2 MG/ML 2 ML VIAL NEB SCH (20:00)
[2024-12-14] MEDS ORDERED: BUDESONIDE 0.5 MG/2 ML INHALATION SUSPENSION NEB SCH (20:00)
[2024-12-14] MEDS ORDERED: FORMOTEROL FUMARATE 20 MCG/2 ML INHALATION SOLUTION (PERFOROMIST) INH SCH (20:00)
[2024-12-14] MEDS ORDERED: rOPINIRole 1MG TAB PO SCH (21:00)
== END 2024-12-14 16:56 | disposition home or self-care (01) ==
LOC: M ED 01:30 → INTOOBSV 05:41 → M ED INP 05:41
PROVIDERS: ADMIT Student in an Organized Health Care Education/Training Program; ATTEND Student in an Organized Health Care Education/Training Program
DX: J96.22 Acute and chronic respiratory failure with hypercapnia (principal); J44.1 Chronic obstructive pulmonary disease with (acute) exacerbation; J96.11 Chronic respiratory failure with hypoxia; Z99.81 Dependence on supplemental oxygen; K21.9 Gastro-esophageal reflux disease without esophagitis; F41.9 Anxiety disorder, unspecified; F32.A Depression, unspecified; R53.1 Weakness; R42 Dizziness and giddiness; R29.6 Repeated falls; Z83.6 Family history of other diseases of the respiratory system; Z80.3 Family history of malignant neoplasm of breast; Z87.891 Personal history of nicotine dependence; Z79.899 Other long term (current) drug therapy; Z79.51 Long term (current) use of inhaled steroids
CPT/HCPCS: 36415; 36600; 71045; 71275; 80048; 80076; 82550; 82553; 82803; 83605; 83735; 83880; 84436; 84443; 84484; 85025; 87040; 87486; 87581; 87633; 87798; 93005; 93041; 94640; 94667; 94760; 96365; 96366; 96372; 96375; 96376; 97161; 97165; 97535; 99285; J2470; J2919; J3475; Q9967

== ENCOUNTER → 2025-01-28 | Outpatient (CLI) | payer OTHER ==
[~2025-01-28] MED LIST changes: +DOXY-442 PO; -DOXY100C82 PO; +HYDR-3363 PO; +HYDR-3713 PO; +MORP1SOL5 PO; +MORP20SO PO
== END ==
LOC: M PAL 09:07
PROVIDERS: ATTEND Physician Assistant
DX: Z51.5 Encounter for palliative care (principal); J44.89 Other specified chronic obstructive pulmonary disease; J96.10 Chronic respiratory failure, unspecified whether with hypoxia or hypercapnia; Z99.81 Dependence on supplemental oxygen; Z79.891 Long term (current) use of opiate analgesic; Z79.899 Other long term (current) drug therapy

== ENCOUNTER → 2025-02-11 | Outpatient (CLI) | payer OTHER ==
[~2025-02-11] MED LIST changes: +MORP15TA2 PO
== END ==
LOC: M PAL 08:00
PROVIDERS: ATTEND Physician Assistant
DX: Z51.5 Encounter for palliative care (principal); J44.9 Chronic obstructive pulmonary disease, unspecified; Z99.81 Dependence on supplemental oxygen; J96.10 Chronic respiratory failure, unspecified whether with hypoxia or hypercapnia; Z79.891 Long term (current) use of opiate analgesic; Z79.899 Other long term (current) drug therapy

== ENCOUNTER → 2025-02-25 | Outpatient (CLI) | payer OTHER | LOC: M PAL 08:52 | PROVIDERS: ATTEND Physician Assistant | DX: Z51.5 Encounter for palliative care (principal); J96.10 Chronic respiratory failure, unspecified whether with hypoxia or hypercapnia; J44.9 Chronic obstructive pulmonary disease, unspecified; Z99.81 Dependence on supplemental oxygen; Z87.891 Personal history of nicotine dependence; Z79.899 Other long term (current) drug therapy; R52 Pain, unspecified; F41.9 Anxiety disorder, unspecified; F32.A Depression, unspecified ==

== ENCOUNTER → 2025-02-28 | Outpatient (REF) | payer OTHER ==
[~2025-02-28] MED LIST changes: +PREG-35 PO; -PREG100CA PO
[2025-02-28 17:35] LABS: HEMATOCRIT 39.4 % (42.0-52.0); HEMOGLOBIN 11.8 g/dl (13.5-17.5); MEAN CORPUSCULAR HEMOGLOBIN 25.4 pg (27.0-33.0); MEAN CORPUSCULAR HGB CONC 29.9 g/dl (32.0-36.5); MEAN CORPUSCULAR VOLUME 84.7 fl (80.0-96.0); PLATELET COUNT, AUTOMATED 225 10^3/uL (150-450); RED BLOOD COUNT 4.65 10^6/uL (4.30-6.10); WHITE BLOOD COUNT 8.6 10^3/uL (4.0-10.0)
[2025-02-28 17:41] LABS: ALBUMIN 3.7 G/DL (3.2-5.2); ALKALINE PHOSPHATASE 116 U/L (40-129); ALT/SGPT 17 U/L (7.0-40); AST/SGOT 14 U/L (<34); BILIRUBIN,TOTAL < 0.2 MG/DL (0.3-1.2); BLOOD UREA NITROGEN 20 MG/DL (9-23); CALCIUM LEVEL 8.9 MG/DL (8.5-10.1); CARBON DIOXIDE LEVEL 32 MMOL/L (20-31); CHLORIDE LEVEL 102 MMOL/L (98-107); CHOLESTEROL LEVEL 151 MG/DL (<200); CHOLESTEROL RISK RATIO 3.25 (<5); CREATININE FOR GFR 0.74 MG/DL (0.70-1.30); GLOMERULAR FILTRATION RATE > 90.0 (>56); GLUCOSE, FASTING 89 MG/DL (60-100); HDL CHOLESTEROL 46.4 MG/DL (>40); LDL CHOLESTEROL 87.8 MG/DL (<100); NON-HDL-C 104.6 MG/DL; POTASSIUM SERUM 4.6 MMOL/L (3.5-5.1); SODIUM LEVEL 140 MMOL/L (136-145); TOTAL PROTEIN 7.3 G/DL (5.7-8.2); TRIGLYCERIDES LEVEL 84 MG/DL (<150)
[2025-02-28 17:45] LABS: THYROID STIMULATING HORMONE 2.458 uIU/ML (0.55-4.78)
[2025-02-28 18:43] LABS: HEMOGLOBIN A1c 5.3 % (4.0-6.0)
== END ==
LOC: M LAB REF 16:29
PROVIDERS: ATTEND Student in an Organized Health Care Education/Training Program
DX: Z00.01 Encounter for general adult medical examination with abnormal findings (principal)

== ENCOUNTER → 2025-03-11 | Outpatient (CLI) | payer OTHER | LOC: M PAL 09:10 | PROVIDERS: ATTEND Physician Assistant | DX: Z51.5 Encounter for palliative care (principal); J44.89 Other specified chronic obstructive pulmonary disease; J96.10 Chronic respiratory failure, unspecified whether with hypoxia or hypercapnia; Z99.81 Dependence on supplemental oxygen; Z79.891 Long term (current) use of opiate analgesic; Z63.4 Disappearance and death of family member ==

== ENCOUNTER → 2025-05-16 | Outpatient (CLI) | payer OTHER ==
[~2025-05-16] MED LIST changes: +DIVA-41 PO; -DIVA500T94 PO; +FLUO40CA PO; +OXYC10TA12 PO
== END ==
LOC: M PAL 13:02
PROVIDERS: ATTEND Physician Assistant
DX: Z51.5 Encounter for palliative care (principal); J44.9 Chronic obstructive pulmonary disease, unspecified; J96.11 Chronic respiratory failure with hypoxia; Z99.81 Dependence on supplemental oxygen; Z79.891 Long term (current) use of opiate analgesic

== ENCOUNTER 2025-05-30 10:58 | Inpatient (IN) | payer MEDICARE, OTHER ==
[~2025-05-30] VITALS: Ht 180.3 cm; Wt 100.0 kg
[2025-05-30 11:46] LABS: VENOUS BASE EXCESS 0.6 (-2.0-2.0); VENOUS HCO3 27.8 MMOL/L (23.0-27.0); VENOUS O2 SATURATION 95.4 % (60.0-80.0); VENOUS PARTIAL PRESSURE CO2 56.9 mmHg (38.0-50.0); VENOUS PARTIAL PRESSURE O2 79.3 mmHg (30.0-50.0); VENOUS PH 7.307 UNITS (7.330-7.430); VENOUS STANDARD HCO3 24.9 MMOL/L; VENOUS TOTAL CO2 29.6 MMOL/L (24.0-28.0)
[2025-05-30 11:51] LABS: BASO # 0.0 10^3/uL (0.0-0.2); BASO % 0.3 % (0.0-1.0); EOS # 0.0 10^3/uL (0.0-0.5); EOS % 0.2 % (0.0-3.0); LYMPH # 0.8 10^3/uL (1.5-5.0); LYMPH % 5.9 % (24.0-44.0); MONO # 1.0 10^3/uL (0.0-0.8); MONO % 7.7 % (2.0-8.0); NEUTROPHILS # 10.9 10^3/uL (1.5-8.5); NEUTROPHILS % 85.4 % (36.0-66.0); PLATELET COUNT, AUTOMATED 208 10^3/uL (150-450)
[2025-05-30 12:16] LABS: ETHYL ALCOHOL (ETHANOL) < 0.003 % (0.000-0.010)
[2025-05-30 12:18] LABS: SALICYLATE LEVEL < 3.0 MG/DL (<30)
[2025-05-30 12:19] LABS: ALT/SGPT 21 U/L (7.0-40); AST/SGOT 31 U/L (<34); CALCIUM LEVEL 8.8 MG/DL (8.5-10.1); CARBON DIOXIDE LEVEL 31 MMOL/L (20-31); CHLORIDE LEVEL 96 MMOL/L (98-107); CK-MB VALUE MASS 4.3 NG/ML (<3.6); CREATININE FOR GFR 0.74 MG/DL (0.70-1.30); GLOMERULAR FILTRATION RATE > 90.0 (>56); POTASSIUM SERUM 4.8 MMOL/L (3.5-5.1); SODIUM LEVEL 136 MMOL/L (136-145)
[2025-05-30 12:31] LABS: CPK CREATINE PHOSPHOKINASE 326 U/L (46-171); MB/CK RELATIVE INDEX 1.31 (< OR =4)
[2025-05-30] MEDS ORDERED: ISOVUE-370 76% 100 ML VIAL As Ordered ONE (12:44)
[2025-05-30] MEDS: LIDOCAINE 2% 5 ML JELLY UROJET TOP ONE (13:27)
[2025-05-30 13:28] LABS: KETONE, URINE AUTO RFX NEGATIVE (NEGATIVE); LEUKOCYTE ESTERASE UR AUTO RFX NEGATIVE (NEGATIVE); MUCUS, URINE RFX SMALL (NEGATIVE); NITRITE, URINE AUTO RFX NEGATIVE (NEGATIVE); RBC, URINE AUTO RFX 0 /HPF (0-3); SQUAM EPITHELIAL CELL UR AURFX 0 /HPF (0-6); WBC, URINE AUTO RFX 1 /HPF (0-3)
[2025-05-30] MEDS ORDERED: YUPE175S NEB (13:33)
[2025-05-30] MEDS ORDERED: ARFO15VI18 NEB (13:33)
[2025-05-30] MEDS ORDERED: FLUO40CA PO (13:33)
[2025-05-30] MEDS ORDERED: OXYC10TA12 PO (13:33)
[2025-05-30] MEDS ORDERED: HOME MED LIST COMPLETE! XX SCH (13:35)
[2025-05-30 13:38] LABS: AMPHETAMINES LEVEL URINE NEGATIVE (NEGATIVE)
[2025-05-30 13:39] LABS: BARBITURATES URINE NEGATIVE (NEGATIVE); BENZODIAZEPINES URINE NEGATIVE (NEGATIVE); CANNABINOIDS URINE NEGATIVE (NEGATIVE); COCAINE METABOLITE URINE NEGATIVE (NEGATIVE); METHADONE URINE NEGATIVE (NEGATIVE); PHENCYCLIDINE URINE NEGATIVE (NEGATIVE)
[2025-05-30 13:44] LABS: OPIATES URINE POSITIVE (NEGATIVE)
[2025-05-30] MEDS: cefTRIAXone SOD 1 GM in DEXTROSE 5% (D5W) ADV/MINI-BAG 50 ML IV ONE (14:14)
[2025-05-30] MEDS: AZITHROMYCIN INJ 500 MG, VIAL MATE ADAPTER 1 EACH in NS 250 ML IV ONE (14:22)
[2025-05-30] MEDS: IPRATROPIUM 0.5 MG/ALBUTEROL 2.5 MG INH SOL UD 3 ML NEB ONE (15:46)
[2025-05-30] MEDS: IPRATROPIUM 0.5 MG/ALBUTEROL 2.5 MG INH SOL UD 3 ML INH SCH (19:29)
[2025-05-30] MEDS: BUDESONIDE 0.5 MG/2 ML INHALATION SUSPENSION NEB SCH (19:29)
[2025-05-30 19:31] VITALS: O2SAT 97
[2025-05-30 20:00] VITALS: BP 138/79; TEMP 97.4; O2SAT 94
[2025-05-30] MEDS: FLUoxetine 20 MG CAP PO SCH (21:31)
[2025-05-30 23:52] VITALS: BP 159/92; O2SAT 96
[2025-05-31] VITALS (15 sets, daily range): BP systolic 125–172; BP diastolic 62–84; TEMP 97.6–98.8; O2SAT 89–97
[2025-05-31 01:39] LABS: ABG BASE EXCESS 5.2 (-2.0-2.0); ABG HCO3 30.5 MMOL/L (22.0-26.0); ABG O2 SATURATION 98.0 % (95.0-99.0); ABG PARTIAL PRESSURE CO2 47.8 mmHg (35.0-45.0); ABG PARTIAL PRESSURE O2 104.4 mmHg (75.0-100.0); ABG STANDARD HCO3 29.2 MMOL/L. (22.0-26.0); ABG TOTAL CO2 32.0 MMOL/L (22.0-29.0); ABG pH (ARTERIAL) 7.423 UNITS (7.350-7.450)
[2025-05-31 07:19] LABS: PLATELET COUNT, AUTOMATED 190 10^3/uL (150-450)
[2025-05-31] MEDS: LEVALBUTEROL 1.25 MG 0.5ML CONCENTRATE NEB NEB ONE (07:30)
[2025-05-31] MEDS: ENOXAPARIN 40 MG/0.4 ML SYRINGE (J1650 PER 10MG) SC SCH (08:04)
[2025-05-31 08:19] LABS: CALCIUM LEVEL 9.2 MG/DL (8.5-10.1); CARBON DIOXIDE LEVEL 29 MMOL/L (20-31); CHLORIDE LEVEL 97 MMOL/L (98-107); CREATININE FOR GFR 0.55 MG/DL (0.70-1.30); GLOMERULAR FILTRATION RATE > 90.0 (>56); POTASSIUM SERUM 3.8 MMOL/L (3.5-5.1); SODIUM LEVEL 138 MMOL/L (136-145)
[2025-05-31] MEDS ORDERED: ACETAMINOPHEN 325 MG TAB PO PRN ×2 (11:45→16:00)
[2025-05-31] MEDS: GLYCOPYRROLATE INJ 0.2 MG/ML 2 ML VIAL NEB SCH (12:28)
[2025-05-31] MEDS: AZITHROMYCIN INJ 500 MG, VIAL MATE ADAPTER 1 EACH in D5W 250 ML IV SCH (13:14)
[2025-05-31] MEDS: IPRATROPIUM 0.5 MG/ALBUTEROL 2.5 MG INH SOL UD 3 ML INH PRN (14:18)
[2025-05-31] MEDS ORDERED: MORPHINE SULFATE INJ 100 MG in NS 90 ML IV SCH (16:00)
[2025-05-31] MEDS ORDERED: FLEET ENEMA PR PRN (16:00)
[2025-05-31] MEDS ORDERED: ATROPINE SULFATE 1% OPHTH SOLN 2 ML BTL SL PRN (16:00)
[2025-05-31] MEDS ORDERED: BISACODYL 10 MG SUPP PR PRN (16:00)
[2025-05-31] MEDS ORDERED: SCOPOLAMINE 1MG TRANSDERMAL PATCH TOP PRN (16:00)
[2025-05-31] MEDS ORDERED: HYOSCYAMINE SULFATE 0.125 MG SUBL TABLET PO PRN (16:00)
[2025-05-31] MEDS ORDERED: ACETAMINOPHEN 650 MG SUPP PR PRN (16:00)
[2025-05-31] MEDS ORDERED: ONDANSETRON 4MG ORAL DISINTEGRATING TAB PO PRN (16:00)
[2025-05-31] MEDS ORDERED: ONDANSETRON 4MG 2ML VIAL IV PRN (16:00)
[2025-05-31] MEDS: PREGABALIN 75 MG CAP PO SCH (16:31)
[2025-05-31] MEDS: MORPHINE 2 MG/ML 1 ML VIAL IV PRN (16:35)
[2025-06-01] MEDS: AZITHROMYCIN 250 MG TABLET PO SCH (09:24)
[2025-06-01] MEDS: predniSONE 20 MG TAB PO SCH (09:25)
[2025-06-01] MEDS: MORPHINE 10 MG/0.5 ML ORAL CONCENTRATE SOLUTION U/D SL PRN (10:51)
[2025-06-01] MEDS: LORazepam 1 MG TAB PO PRN (17:02)
[2025-06-03] MEDS ORDERED: LORazepam 0.5 MG TAB PO PRN (12:45)
[2025-06-03] MEDS ORDERED: PRED20TA PO (13:04)
[2025-06-03] MEDS ORDERED: OXYC-1 PO (14:15)
[2025-06-03] MEDS ORDERED: LORA1TAB23 PO (14:15)
== END 2025-06-03 15:27 | disposition hospice, home (50) | DRG 192 ==
LOC: EDBD 10:58 → M ED 10:58 → M ED INP 16:59 → M PCU 20:00
PROVIDERS: ADMIT Student in an Organized Health Care Education/Training Program; ATTEND Family Medicine
DX: J44.1 Chronic obstructive pulmonary disease with (acute) exacerbation (principal); Z99.81 Dependence on supplemental oxygen; R41.0 Disorientation, unspecified; F41.9 Anxiety disorder, unspecified; F32.A Depression, unspecified; K21.9 Gastro-esophageal reflux disease without esophagitis; Z51.5 Encounter for palliative care; Z66 Do not resuscitate; G89.29 Other chronic pain; M54.9 Dorsalgia, unspecified; I10 Essential (primary) hypertension; G25.81 Restless legs syndrome; Z87.891 Personal history of nicotine dependence; Z98.84 Bariatric surgery status; Z90.49 Acquired absence of other specified parts of digestive tract; Z79.899 Other long term (current) drug therapy